=== PATIENT | male | born 1970 | race Caucasian/White ===

== ENCOUNTER 2020-09-16 08:32 | Outpatient (REF) | payer OTHER, SELFPAY ==
--- NOTE | 2020-09-16 08:40 | FL_ITS ---
PROCEDURE: BARIUM SWALLOW CLINICAL INFORMATION: Dysphagia. COMPARISON: None TECHNIQUE: Routine barium swallow was performed with thick barium, barium-coated turkey, barium tablet in upright and thin barium in prone lying position. FINDINGS: Following oral administration of thick barium, barium-coated turkey and barium tablet in upright view there is normal propagation of bolus from the oral cavity through the pharynx, esophagus into stomach without any evidence of obstruction, narrowing or stricture. A nonobstructive prominent cricoesophageal sphincter is noted. There is spontaneous passage of barium tablet from the oral cavity through the esophagus into stomach. On placing patient prone lying and oral administration of thin barium there is normal distention of esophagus without any intraluminal mass, obstruction or extraluminal indentation. There is no hiatal hernia or gastroesophageal reflux seen. IMPRESSION: Unremarkable barium swallow. Fluoroscopy time: 2.9 minutes. Total dose area product: 47.814 Gy-cm2.
== END 2020-09-16 08:33 | disposition home or self-care (01) ==
LOC: HO.XRAY 08:32
PROVIDERS: PCP Internal Medicine; Visit Provider Internal Medicine
DX: R13.10 Dysphagia, unspecified (principal)
CPT/HCPCS: 74220

== ENCOUNTER 2022-07-24 09:40 | Outpatient (REF) | payer BC, SELFPAY ==
[2022-07-24 09:59] LABS: MANUAL DIFF FLAG NO
[2022-07-24 10:50] LABS: Basophils Percent Auto 0.3 % (0-2); Eosinophils Absolute Auto 0.2 X10*3/uL (0.0-0.4); Eosinophils Percent Auto 1.9 % (0-4); Hematocrit 40.7 % (42.0-52.0); Hemoglobin 13.8 g/dl (14.0-18.0); Imm Gran Abs Auto 0.03 X10*3/uL (0.00-0.03); Imm Gran Pct Auto 0.3 % (0.0-0.4); Lymphocytes Absolute Auto 2.3 X10*3/uL (1.2-4.9); Lymphocytes Percent Auto 25.2 % (20-40); Mean Corpuscular HGB Conc 33.9 g/dl (31.0-36.0); Mean Corpuscular Volume 82.6 fL (80.0-98.0); Mean Platelet Volume 10.1 fL (9.4-12.4); Monocytes Absolute Auto 0.5 X10*3/uL (0.1-1.2); Monocytes Percent Auto 5.4 % (2-11); Neutrophils Absolute Auto 6.2 x10*3/uL (2.0-8.3); Neutrophils Percent Auto 66.9 % (45-73); Platelet Count 203 X10*3/uL (160-400); Red Blood Count 4.93 X10*6/uL (4.60-5.80); Red Cell Distribution Width 13.2 % (11.0-16.0); White Blood Count 9.2 X10*3/uL (4.8-10.8)
[2022-07-24 11:07] LABS: Appearance Urine Clear; Color Urine Yellow; Glucose Urine UA Negative (Negative); Leukocyte Esterase Urine Negative (Negative); Nitrite Urine Negative (Negative); Specific Gravity - Urine 1.015 (1.005-1.025); Urine Blood Negative (Negative); Urine Ketones Negative (Negative); Urine Protein Negative (Neg-Trace)
[2022-07-24 11:34] LABS: Alanine Aminotransferase 26 U/L (0-40); Albumin Level 4.4 g/dL (3.5-5.0); Alkaline Phosphatase 67 U/L (39-117); Anion Gap 14 (12-20); Aspartate Amino Transferase 25 U/L (5-37); Bilirubin Total 0.9 mg/dL (0.0-1.0); Blood Urea Nitrogen 16 mg/dL (9-16); Calcium 9.6 mg/dL (8.4-10.2); Carbon Dioxide 29 mmol/L (22-29); Chloride 102 mmol/L (96-108); Cholesterol 198 mg/dL; Estimated Glomerular Filt Rate > 60; Glucose Fasting 108 mg/dL (60-99); HDL Cholesterol 44 mg/dL; LDL Cholesterol Calculated 124 mg/dl; Potassium 4.6 mmol/L (3.3-5.1); Sodium 140 mmol/L (135-145); Total Protein 6.8 g/dL (6.5-8.0); Triglycerides 154 mg/dL
[2022-07-24 11:45] LABS: TSH reflex Free T4 0.86 uIU/mL (0.32-4.0)
== END 2022-07-24 09:41 | disposition home or self-care (01) ==
LOC: HO.LAB 09:40
PROVIDERS: PCP Internal Medicine; Visit Provider Internal Medicine
DX: E78.00 Pure hypercholesterolemia, unspecified (principal); E55.9 Vitamin D deficiency, unspecified; I10 Essential (primary) hypertension
CPT/HCPCS: 36415; 80053; 80061; 81003; 82306; 84443; 85025

== ENCOUNTER 2023-01-20 11:15 | Outpatient (REF) | payer BC, SELFPAY ==
--- NOTE | ~2023-01-20 | US_ITS ---
EXAMINATION: US RETROPERITONEAL LIMITED (RENAL ONLY) CLINICAL INFORMATION: Calculus of kidney. COMPARISON: Ultrasound retroperitoneal limited (renal only) 08/28/2018. CT of the abdomen and pelvis without contrast 08/11/2018. Ultrasound retroperitoneal limited (renal only) 05/29/2018. X-ray of the abdomen KUB 04/26/2018 and 03/29/2018. TECHNIQUE: Real-time imaging of the kidneys. FINDINGS: RIGHT KIDNEY: 13.5 x 6.3 x 7.7 cm (SAG x AP x TRV). The kidney is normal in size, contour, and echogenicity. Renal cortical thickness is normal. Multiple nonobstructing renal calculi are seen scattered throughout the kidney. The largest 3 were measured and range in size from 3.7 mm to 4.5 mm. No focal parenchymal lesions or hydronephrosis. LEFT KIDNEY: 13.2 x 6.3 x 7.7 cm (SAG x AP x TRV). The kidney is normal in size, contour, and echogenicity. Renal cortical thickness is normal. Multiple nonobstructing renal calculi are seen scattered throughout the kidney. Five of the larger stones are measured ranging in size from 4.3 mm up to 6.8 mm. No focal parenchymal lesions or hydronephrosis. Incidental note is made of an echogenic liver, consistent with hepatic steatosis which has been seen on prior imaging studies. US/US renal BI IMPRESSION: Bilateral nonobstructing renal calculi. Overall stone burden appears to have increased since prior imaging studies. Incidentally noted hepatic steatosis.
== END 2023-01-20 11:16 | disposition home or self-care (01) ==
LOC: HO.HMGCX 11:15
PROVIDERS: PCP Internal Medicine; Visit Provider Internal Medicine
DX: N20.0 Calculus of kidney (principal)
CPT/HCPCS: 76775

== ENCOUNTER → 2023-01-24 10:56 | Outpatient (BNVA) | payer BC, SELFPAY | PROVIDERS: PCP Internal Medicine; Visit Provider Urology | DX: Z13.89 Encounter for screening for other disorder (principal) ==

== ENCOUNTER 2023-01-31 08:22 | Outpatient (REF) | payer BC, SELFPAY ==
[2023-01-31 11:35] LABS: MANUAL DIFF FLAG NO
[2023-01-31 11:50] LABS: Appearance Urine Clear; Color Urine Yellow; Glucose Urine UA Negative (Negative); Leukocyte Esterase Urine Negative (Negative); Nitrite Urine Negative (Negative); PH 7.5 (5.0-9.0); Specific Gravity - Urine 1.015 (1.005-1.025); Urine Blood Negative (Negative); Urine Ketones Negative (Negative); Urine Protein Negative (Neg-Trace)
[2023-01-31 12:00] LABS: Basophils Percent Auto 0.4 % (0-2); Eosinophils Absolute Auto 0.2 X10*3/uL (0.0-0.4); Hematocrit 42.4 % (42.0-52.0); Hemoglobin 14.2 g/dl (14.0-18.0); Imm Gran Abs Auto 0.04 X10*3/uL (0.00-0.03); Imm Gran Pct Auto 0.4 % (0.0-0.4); Lymphocytes Absolute Auto 2.4 X10*3/uL (1.2-4.9); Lymphocytes Percent Auto 26.1 % (20-40); Mean Corpuscular HGB Conc 33.5 g/dl (31.0-36.0); Mean Corpuscular Hemoglobin 27.8 pg (27.0-33.0); Mean Platelet Volume 10.5 fL (9.4-12.4); Monocytes Absolute Auto 0.4 X10*3/uL (0.1-1.2); Monocytes Percent Auto 4.9 % (2-11); Neutrophils Percent Auto 66.2 % (45-73); Platelet Count 198 X10*3/uL (160-400); Red Blood Count 5.11 X10*6/uL (4.60-5.80); Red Cell Distribution Width 13.2 % (11.0-16.0)
[2023-01-31 12:07] LABS: Estimated Average Glucose 128 mg/dL; Hemoglobin A1c % 6.1 %
[2023-01-31 12:18] LABS: Alanine Aminotransferase 26 U/L (0-40); Albumin Level 4.4 g/dL (3.5-5.0); Alkaline Phosphatase 68 U/L (39-117); Anion Gap 13 (12-20); Aspartate Amino Transferase 25 U/L (5-37); Bilirubin Total 1.2 mg/dL (0.0-1.0); Blood Urea Nitrogen 15 mg/dL (9-16); Calcium 9.3 mg/dL (8.4-10.2); Carbon Dioxide 29 mmol/L (22-29); Chloride 103 mmol/L (96-108); Cholesterol 198 mg/dL; Estimated Glomerular Filt Rate > 60; Glucose Fasting 117 mg/dL (60-99); HDL Cholesterol 40 mg/dL; LDL Cholesterol Calculated 118 mg/dl; Sodium 141 mmol/L (135-145); Total Protein 6.7 g/dL (6.5-8.0); Triglycerides 204 mg/dL
[2023-01-31 12:35] LABS: TSH reflex Free T4 1.32 uIU/mL (0.32-4.0); Vitamin D 25-OH Total 37.2 ng/mL (>30)
[2023-01-31 13:49] LABS: Prostate Specific Antigen 0.56 ng/mL (<0.05-4.0)
== END 2023-01-31 08:23 | disposition home or self-care (01) ==
LOC: HO.HMGCLDS 08:22
PROVIDERS: PCP Internal Medicine; Visit Provider Internal Medicine
DX: Z12.5 Encounter for screening for malignant neoplasm of prostate (principal); E11.9 Type 2 diabetes mellitus without complications; R30.0 Dysuria; E55.9 Vitamin D deficiency, unspecified; I10 Essential (primary) hypertension; N40.0 Benign prostatic hyperplasia without lower urinary tract symptoms; E78.00 Pure hypercholesterolemia, unspecified
CPT/HCPCS: 36415; 80053; 80061; 81003; 82306; 83036; 84153; 84443; 85025

== ENCOUNTER 2023-02-04 13:12 | Outpatient (REF) | payer BC, SELFPAY ==
--- NOTE | ~2023-02-04 | XR_ITS ---
EXAMINATION: XR ABDOMEN KUB CLINICAL INDICATION: Renal calculus COMPARISON: KUB 04/26/2018, renal ultrasound 01/20/2023 TECHNIQUE: AP view of the abdomen. FINDINGS: Nonobstructive bowel gas pattern with small stool burden. Multiple stones project over the left kidney, the largest of which appears to be in the upper pole measuring up to 0.6 cm. Renal stones of the right kidney are not well seen likely secondary to overlying stool and bowel gas. Small calcification within the right pelvis, likely representing a phlebolith. No acute osseous abnormalities. XR/XR KUB IMPRESSION: 1. Multiple left-sided renal stones as above. Right renal stones are not well seen, likely secondary to bowel gas. 2. Nonobstructive bowel gas pattern.
== END 2023-02-04 13:13 | disposition home or self-care (01) ==
LOC: HO.XRAY 13:12
PROVIDERS: PCP Internal Medicine; Visit Provider Urology
DX: N20.0 Calculus of kidney (principal)
CPT/HCPCS: 74018

== ENCOUNTER → 2023-02-21 09:32 | Outpatient (BNVA) | payer BC, SELFPAY | PROVIDERS: PCP Internal Medicine; Visit Provider Urology | DX: N20.0 Calculus of kidney (principal) ==

== ENCOUNTER 2023-09-09 09:31 | Outpatient (AMB) | payer BC, SELFPAY ==
--- NOTE | 2023-09-09 09:52 | MHC.OFFVIS ---
Intake Intake Visit Reasons: 6m/litholink Intake Note: Patient presents today for a follow-up on Litholink Results, completed on 08/29/2023: Meds- Tamsulosin & Vitamin B6 Allergies to Antibiotic- No Known Allergies Blood Thinner- None Registrar Nurses' Registry Required: No Accompanied by: Self / Same As Patient Allergies No Known Allergies [No Known Allergies*] Allergy (Verified 09/09/23 09:53) Medication List - Last Reconciled 09/09/23 by Rasheed Del Valle MD allopurinol 100 mg PO DAILY amlodipine 10 mg PO DAILY 90 days fluoxetine 80 mg (2 x 40 mg) PO DAILY 90 days hydrochlorothiazide 12.5 mg PO QAM lisinopril 40 mg PO DAILY pyridoxine (vitamin B6) 50 mg PO DAILY tamsulosin 0.4 mg PO BID HPI HPI Comments History of Present Illness Details Miki is a 52-year-old male who presents to the clinic for discussion 24-hour urine collection test results. Miki is followed for kidney stones. He has passed numerous stones in the past. He has been prescribed allopurinol 100 mg daily, history of uric acid stones. Previous 24 hour urine collection has been significant for hypercalciuria and hyperoxaluria. I have instructed on vitamin B 100 mg daily. He is on tamsulosin bid for lower urinary tract symptoms from BPH. He states that he has seen Nephrology and had the hydrochlorothiazide medication increased. I have reviewed the recent 24 hour urine collection collected on 08/30/2023. There is notable improvement with urine calcium 200 and, urine oxalate 42, urine sodium 146. Urine citrate has lowered which has been high in the past patient states he has not been eating as much citrus fruit such oranges as usual. I have also discussed lemon in the water. He has been drinking adequate fluids, urine volume was 3.11 L. Total time in discussion with patient and documentation of this record, 30 min LV--02/21/2023-- Miki is a 52-year-old male who presents to the clinic for discussion of KUB, PSA, and 24-hour urine collection test results The patient is currently taking hydrochlorothiazide 12.5 mg and allopurinol 100 mg The patient had history of ESWL procedure 5 years ago without any noted side effects. AUA symptom score: 4. Discussed 24 hour urine results-- collected on 02/08/2023: Total volume 3.69 L, Calcium 338 mg; Oxalate 57 mg, Sodium 236, Citrate 419 mg, Uric acid 0.775. PSA results reviewed?01/31/2023?0.56 ng/mL. KUB results reviewed?02/04/23-- Multiple left and right renal calculi noted. Renal stones of the right kidney are not well seen likely secondary to overlying stool and bowel gas. Renal US-- Suggestive of bilateral nonobstructing renal calculi. Evaluation today: Blood: negative, leukocytes: negative. Imaging: Renal U/S--01/20/23: IMPRESSION: Bilateral nonobstructing renal calculi. KUB 02/04/2023-bilateral kidney stones largest stone in the left kidney 6 mm Plan: The patient has passed many stones in the past and is currently asymptomatic his 24 hour urine numbers have improved. Will monitor kidneys Follow-up in 9 months with renal ultrasound prior [facility] Medical History Impaired fasting glucose Primary osteoarthritis of both knees Carpal tunnel syndrome, right Uric acid renal calculus Dysphagia Benign prostatic hyperplasia Morbid obesity with BMI of 40.0-44.9, adult Anxiety Obstructive sleep apnea Benign essential hypertension Surgical History History of lithotripsy (~03/29/18) History of lithotripsy History of surgery History of colonoscopy History of vasectomy History of tonsillectomy Family History Father No problems noted. Mother No problems noted. Brother Diabetes mellitus Social History Housing: House Alcohol intake: current Alcohol intake frequency: holidays/special occasions only Patient Tobacco Use Status: Former Tobacco user e-Cigarette/Vaping Use: Never Used Second Hand Smoke Exposure: Yes service: No Current occupational status: employed Cognitive needs: No Hearing needs: No Vision needs: Yes Review of Systems Const Reports no additional complaints Eyes Reports no additional complaints ENT Denies neck pain Card Denies leg edema Resp Denies cough GI Denies constipation Musc Reports no additional complaints and Denies neck pain Skin/Breast Denies rash and Denies unusual bruising Neuro Reports no additional complaints Psych Reports no additional complaints Endo Reports no additional complaints Alexander/Lymph Reports no additional complaints Aller/Immun Reports no additional complaints Results AMB Urinalysis, Automated UA Leukoctes 15 Huyen/uL Last Edit by Lex Coles [facility] on 09/09/23 10:12 UA Nitrite Negative Last Edit by Lex Coles, [facility] on 09/09/23 10:12 UA Urobilinogen 0.2 mg/dL Last Edit by Lex Coles [facility] on 09/09/23 10:12 UA Protein 0 mg/dL Last Edit by Lex Coles [facility] on 09/09/23 10:12 UA pH 6.5 Last Edit by Lex Coles [facility] on 09/09/23 10:12 UA Blood 0 Nba/uL Last Edit by Lex Coles [facility] on 09/09/23 10:12 UA Specific [place] 1.015 Last Edit by Lxe Coles [facility] on 09/09/23 10:12 UA Ketone Negative Last Edit by Lex Coles [facility] on 09/09/23 10:12 UA Bilirubin 0 mg/dL Last Edit by Lex Coles [facility] on 09/09/23 10:12 UA Glucose 0 mg/dL Last Edit by Lex Coles [facility] on 09/09/23 10:12 Results Reviewed Results Reviewed: Laboratory Last Values Urine pH (Auto) 6.5 09/09/23 09:53 Specific [place] (Auto) 1.015 09/09/23 09:53 Urine Protein (Auto) 0 mg/dL 09/09/23 09:53 Glucose (UA)(Auto) 0 mg/dL 09/09/23 09:53 Urine Ketones (Auto) Negative 09/09/23 09:53 Urine Blood (Auto) 0 Nba/uL 09/09/23 09:53 Urine Nitrite (Auto) Negative 09/09/23 09:53 Urine Bilirubin (Auto) 0 mg/dL 09/09/23 09:53 Urine Urobilinogen (Auto) 0.2 mg/dL 09/09/23 09:53 Leukocyte Esterase (Auto) 15 Huyen/uL 09/09/23 09:53 Assessment & Plan Assessment & Plan (1) Hypercalciuria: Code(s): R82.994 - Hypercalciuria (2) Hyperoxaluria: Code(s): R82.992 - Hyperoxaluria (3) Bilateral kidney stones: Code(s): N20.0 - Calculus of kidney Orders: Orders US renal BI Today N20.0 - Calculus of kidney, R82.992 - Hyperoxaluria, R82.994 - Hypercalciuria AMB Urinalysis Automated Today Z13.9 - Encounter for screening, unspecified Coding Level of Care Code Est Pt Level 4 (33840) Diagnoses Hypercalciuria R82.994 Hyperoxaluria R82.992 Bilateral kidney stones N20.0 Time Spent (min) 30
== END 2023-09-09 11:00 | disposition home or self-care (01) ==
PROVIDERS: PCP Internal Medicine; Visit Provider Urology
DX: R82.994 Hypercalciuria (principal); R82.992 Hyperoxaluria; N20.0 Calculus of kidney; Z13.9 Encounter for screening, unspecified
CPT/HCPCS: 99214

== ENCOUNTER → 2023-09-09 09:31 | Outpatient (BNVA) | payer BC, SELFPAY | PROVIDERS: Visit Provider Urology | DX: N20.0 Calculus of kidney (principal); R82.994 Hypercalciuria; R82.992 Hyperoxaluria | CPT/HCPCS: 81003 ==

== ENCOUNTER 2024-02-24 07:10 | Outpatient (REF) | payer BC, SELFPAY ==
[2024-02-24 10:41] LABS: MANUAL DIFF FLAG NO
[2024-02-24 10:49] LABS: Basophils Percent Auto 0.4 % (0-2); Eosinophils Absolute Auto 0.2 X10*3/uL (0.0-0.4); Hematocrit 41.3 % (42.0-52.0); Hemoglobin 14.1 g/dl (14.0-18.0); Imm Gran Abs Auto 0.03 X10*3/uL (0.00-0.03); Imm Gran Pct Auto 0.3 % (0.0-0.4); Lymphocytes Absolute Auto 2.2 X10*3/uL (1.2-4.9); Lymphocytes Percent Auto 23.7 % (20-40); Mean Corpuscular HGB Conc 34.1 g/dl (31.0-36.0); Mean Corpuscular Hemoglobin 28.5 pg (27.0-33.0); Mean Corpuscular Volume 83.6 fL (80.0-98.0); Mean Platelet Volume 10.6 fL (9.4-12.4); Monocytes Absolute Auto 0.5 X10*3/uL (0.1-1.2); Monocytes Percent Auto 5.4 % (2-11); Neutrophils Absolute Auto 6.2 x10*3/uL (2.0-8.3); Neutrophils Percent Auto 68.2 % (45-73); Platelet Count 201 X10*3/uL (160-400); Red Blood Count 4.94 X10*6/uL (4.60-5.80); Red Cell Distribution Width 13.2 % (11.0-16.0); White Blood Count 9.1 X10*3/uL (4.8-10.8)
[2024-02-24 11:09] LABS: Appearance Urine Clear; Color Urine Yellow; Glucose Urine UA Negative (Negative); Leukocyte Esterase Urine Negative (Negative); Nitrite Urine Negative (Negative); PH 6.5 (5.0-9.0); Specific Gravity - Urine 1.015 (1.005-1.025); Urine Blood Negative (Negative); Urine Ketones Negative (Negative); Urine Protein Negative (Neg-Trace)
[2024-02-24 11:10] LABS: Alanine Aminotransferase 26 U/L (0-40); Albumin Level 4.3 g/dL (3.5-5.0); Alkaline Phosphatase 66 U/L (39-117); Anion Gap 13 (12-20); Aspartate Amino Transferase 25 U/L (5-37); Bilirubin Total 0.9 mg/dL (0.0-1.0); Blood Urea Nitrogen 16 mg/dL (9-16); Calcium 9.6 mg/dL (8.4-10.2); Carbon Dioxide 25 mmol/L (22-29); Chloride 105 mmol/L (96-108); Cholesterol 191 mg/dL (<200); Estimated Glomerular Filt Rate > 60; Glucose Fasting 128 mg/dL (60-99); HDL Cholesterol 47 mg/dL (>40); LDL Cholesterol Calculated 115 mg/dL (<100); Potassium 3.7 mmol/L (3.3-5.1); Sodium 139 mmol/L (135-145); Total Protein 7.1 g/dL (6.5-8.0); Triglycerides 145 mg/dL (<150)
[2024-02-24 11:17] LABS: Estimated Average Glucose 123 mg/dL; Hemoglobin A1C 148.6389 umol/L; Hemoglobin A1c % 5.9 % (<6.0)
[2024-02-24 11:28] LABS: TSH reflex Free T4 0.85 uIU/mL (0.32-4.0); Vitamin D 25-OH Total 59.5 ng/mL (>30)
== END 2024-02-24 07:11 | disposition home or self-care (01) ==
LOC: HO.HMGCLDS 07:10
PROVIDERS: PCP Internal Medicine; Visit Provider Internal Medicine
DX: Z00.00 Encounter for general adult medical examination without abnormal findings (principal); Z12.5 Encounter for screening for malignant neoplasm of prostate; E78.00 Pure hypercholesterolemia, unspecified; E11.9 Type 2 diabetes mellitus without complications; E55.9 Vitamin D deficiency, unspecified; D64.9 Anemia, unspecified; R30.0 Dysuria
CPT/HCPCS: 36415; 80053; 80061; 81003; 82306; 83036; 84153; 84443; 85025

== ENCOUNTER 2024-03-23 12:54 | Outpatient (AMB) | payer BC, SELFPAY ==
[2024-03-23 12:58] VITALS: BP 116/74; PULSE 80; O2SAT 98; BMI 43.1
--- NOTE | 2024-03-23 12:58 | MHC.PC.OV ---
Vital Signs 03/23/24 12:58 Height 5 ft 10 in Weight 300 lb 8 oz BMI 43.1 BP 116/74 Blood Pressure Location Lt brachial Position Sitting Pulse 80 Pulse Source Pulse Oximeter Pulse Oximetry (%) 98 Oxygen Delivery Method Room Air Intake Visit Reasons: Annual Exam Intake Note: Patient is here today for a physical. 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: No Accompanied by: Self / Same As Patient Allergies No Known Allergies [No Known Allergies*] Allergy (Verified 03/23/24 13:08) Medication List - Last Reconciled 03/23/24 by Rosendo Easton MD allopurinol 100 mg PO DAILY amlodipine 10 mg PO DAILY 90 days fluoxetine 80 mg (2 x 40 mg) PO DAILY 90 days hydrochlorothiazide 25 mg PO QAM hydrochlorothiazide 25 mg PO DAILY lisinopril 40 mg PO DAILY pyridoxine (vitamin B6) 50 mg PO DAILY tamsulosin 0.8 mg PO Q24H Tobacco use date assessed: 03/23/24 HPI Annual Exam HPI Details Patient comes in today for his annual physical examination - was last seen just over a year ago in January 2023 States that he feels okay He denies any headaches or dizziness Denies any chest pains, no SOB No nausea/vomiting, no abdominal pain No change in bowel habits noted He denies any acute urinary symptoms although he is now taking 2 tablets (0.8 mg) of Tamsulosin at night daily Adds that he needs Rx for a new CPAP device as he is getting a message/notification on his current machine (which is at least 5 years old) that it is nearing the end of life of its freon supply He had his follow up labs done last month - to discuss his results He had his screening colonoscopy last done in 2018 and is not due for repeat colonoscopy for 10 years - will be due for repeat again in 2028 [facility] Medical History Impaired fasting glucose Primary osteoarthritis of both knees Carpal tunnel syndrome, right Uric acid renal calculus Dysphagia Benign prostatic hyperplasia Morbid obesity with BMI of 40.0-44.9, adult Anxiety Obstructive sleep apnea Benign essential hypertension Surgical History History of lithotripsy (~03/29/18) History of lithotripsy History of surgery History of colonoscopy History of vasectomy History of tonsillectomy Family History Father No problems noted. Mother No problems noted. Brother Diabetes mellitus Social History Housing: House Alcohol intake: current Alcohol intake frequency: holidays/special occasions only Patient Tobacco Use Status: Former Tobacco user e-Cigarette/Vaping Use: Never Used Second Hand Smoke Exposure: Yes service: No Current occupational status: employed Cognitive needs: No Hearing needs: No Vision needs: Yes Questionnaire PHQ-9 Over the last 2 weeks, how often have you been bothered by any of the following problems? 1. Little interest or pleasure in doing things: not at all 2. Feeling down, depressed, or hopeless: not at all 3. Trouble falling or staying asleep, or sleeping too much: not at all 4. Feeling tired or having little energy: not at all 5. Poor appetite or overeating: not at all 6. Feeling bad about yourself - or that you are a failure or have let yourself or your family down: not at all 7. Trouble concentrating on things, such as reading the newspaper or watching television: not at all 8. Moving or speaking so slowly that other people could have noticed. Or the opposite - being so fidgety or restless that you have been moving around a lot more than usual: not at all 9. Thoughts that you would be better off or of hurting yourself in some way: not at all Total score: 0 Depression Screening Interpretation: Negative Depression Screening Done: Yes 88093 - PHQ-9 Billing: Yes Source: Developed by Drs. Eulalio Levy, Irene Aponte, Janak Orourke and colleagues, with an educational namrata from [employer]. Thrive Questionnaire Date Thrive assessed: 03/23/24 I am a: Patient What is your living situation today?: I have a steady place to live Within the past 12 months, did the food you bought not last and you didn't have the money to get more?: Never true Within the past 12 months, did you worry whether your food would run out before you got money to buy more?: Never true Do you have trouble paying for medicines?: No Do you have trouble getting transportation to medical appointments?: No Do you have trouble paying your heating and electricity bill?: No Do you have trouble taking care of your child, family member or friend?: No Do you have trouble with day-to-day activities such as bathing, preparing meals, shopping, managing finances, etc.?: No Are you currently unemployed and looking for a job?: No Are you interested in more education?: No Please select the resources that you would like help with: None Currently or been in a relationship where the following occur: no concerns reported THRIVE Score: 0 AUDIT C Alcohol Use Questionnaire (AUDIT-C) 1. How often do you have a drink containing alcohol?: Never 3. How often do you have six or more drinks on one occasion?: Never Total Score: 0 Score Reviewed/Action Taken: Yes ELMA-7 AMB Questionnaire ELMA-7 Date ELMA - 7 assessed: 02/04/23 Source: Developed by Drs. Eulalio Levy, Irene Aponte, Janak Orourke and colleagues, with an educational namrata from [employer]. Review of Systems Const Denies chills, Denies fatigue, Denies fever(s), Denies headache(s), Denies malaise and Denies weakness Eyes Denies blurry vision, Denies change in vision, Denies irritation and Denies itchy eyes ENT Denies dysphagia, Denies dizziness, Denies otalgia, Denies headache(s), Denies nasal congestion, Denies neck pain, Denies odynophagia and Denies sore throat Card Denies chest pain, Denies rapid heart rate, Denies irregular heart rhythm, Denies palpitations and Denies dyspnea Resp Denies chest congestion, Denies cough, Denies dyspnea and Denies wheezing GI Denies abdominal pain, Denies bloating, Denies constipation, Denies dysphagia, Denies heartburn, Denies diarrhea, Denies nausea, Denies odynophagia and Denies vomiting Denies hematuria, Denies difficulty urinating, Denies dysuria, Denies urinary frequency and Denies urinary urgency Musc Denies back pain, Denies arthralgias, Denies joint swelling, Denies muscle weakness and Denies neck pain Skin/Breast Denies change in pigmentation, Denies lesions, Denies rash and Denies unusual bruising Neuro Denies dizziness, Denies headache(s), Denies paresthesias and Denies weakness Endo Denies fatigue and Denies palpitations Aller/Immun Denies itchy eyes and Denies wheezing Physical exam (Primary Care) Vital Signs: Oxygen Delivery Method Room Air 03/23/24 12:58 BMI result Body Mass Index 43.1 Tobacco/Smoking Status: Tobacco use Status Tobacco use date assessed 03/23/24 03/23/24 13:04 Patient Tobacco Use Status Former Tobacco user 03/23/24 12:59 e-Cigarette/Vaping Use Never Used 03/23/24 12:59 Depression Screening Interpretation: Negative Thrive Assessment: Date of Thrive Assessment Date Thrive assessed 02/04/23 03/23/24 12:59 Currently or been in a relationship where the following occur: no concerns reported Const General: no acute distress, alert and awake Orientation/consciousness: patient oriented x3 HENMT Head: Yes normocephalic and Yes atraumatic Ears: external ears normal, TM's normal bilaterally and EAC's normal General nose exam: No nasal discharge present Face and sinus: Yes normal facial exam and Yes sinuses nontender Teeth and gingiva: dentition normal Throat: Yes posterior oropharynx normal and Yes tonsils normal (no TP congestion) Eyes Eyelids: Yes eyelids normal Conjunctivae: conjunctivae normal Pupils: Equal, round and reactive pupils present EOM: EOMs intact bilaterally Neck Neck: Yes no lymphadenopathy and Yes supple Thyroid: Thyroid normal Resp Auscultation: clear to auscultation bilaterally, no rales and no wheezes Cardio Rate: regular rate Rhythm: regular rhythm Heart sounds: no murmurs GI Palpation (GI): Soft to palpation, nontender and No hepatosplenomegaly present Auscultation: normal bowel sounds General: Yes no CVA tenderness Back/Spine/Pelvis Back: no CVA tenderness Thoracic/Lumbar Spine: thoracic and lumbar spine normal to inspection Skin Lesions: no lesions Rashes: no rashes Neuro General: patient oriented x3, moves all extremities, no focal motor deficits and CN's II-XI intact bilaterally Cranial nerves: Yes Equal, round and reactive pupils present Cognition (Neuro): normal cognition Gait exam (Neuro): Normal gait present Extrem General: Yes no clubbing, cyanosis or edema Results Reviewed Results Reviewed: Laboratory Tests 02/24/24 02/24/24 07:18 07:38 WBC 9.1 Hgb 14.1 Hct 41.3 L Plt Count 201 Sodium 139 Potassium 3.7 Creatinine 0.89 Estimated GFR > 60 Fasting Glucose 128 H Hemoglobin A1c % 5.9 Calcium 9.6 AST 25 ALT 26 Triglycerides 145 Cholesterol 191 LDL Cholesterol, Calc 115 H HDL Cholesterol 47 PSA Screen 0.60 25-OH Vitamin D Total 59.5 TSH 0.85 Ur Specific [place] 1.015 Urine Protein Negative Urine Glucose (UA) Negative Urine Blood Negative Urine Nitrite Negative Ur Leukocyte Esterase Negative Assessment and Plan Assessment & Plan (1) Annual physical exam: Code(s): Z00.00 - Encounter for general adult medical examination without abnormal findings Plan: Results of his labs done last month reviewed and discussed with patient Patient is up-to-date with his cancer screenings and he is not due for his repeat colonoscopy until 2028 (2) Benign essential hypertension: Code(s): I10 - Essential (primary) hypertension Plan: Reinforced low sodium diet - goal is systolic BP of 120 mm or less Continue Lisinopril 40 mg QD, HCTZ 25 mg QD and Amlodipine 10 mg QD Patient is reminded to continue monitoring his blood pressure regularly (3) Mixed hyperlipidemia: Code(s): E78.2 - Mixed hyperlipidemia Plan: Reinforced low cholesterol diet Advised that his cholesterol levels are acceptable and within normal range on his labs done last month (4) Impaired fasting glucose: Code(s): R73.01 - Impaired fasting glucose Plan: His HgbA1c was at 5.9% on his labs done last month; was at 6.1% last year Reinforced low calorie diet/exercise as tolerated (5) Obstructive sleep apnea: Code(s): G47.33 - Obstructive sleep apnea (adult) (pediatric) Plan: Continue using his CPAP device when sleeping at night daily - states that his CPAP device has helped improve his symptoms Per request, will provide him with Rx for replacement device (6) Carpal tunnel syndrome, right: Code(s): G56.01 - Carpal tunnel syndrome, right upper limb Plan: Confirmed on EMG/NCV done a few years ago States that he has been advised by Dr. Fuentes to wear his wrist splint regularly to help manage his symptoms; to follow up with Dr. Fuentes as scheduled/as needed (7) Primary osteoarthritis of both knees: Code(s): M17.0 - Bilateral primary osteoarthritis of knee Plan: Follow up with [facility] as scheduled Has reportedly been advised by orthopedics to try losing weight first before any intervention can be considered (8) Uric acid renal calculus: Code(s): N20.0 - Calculus of kidney Plan: Reports no significant or acute symptoms lately although he is still passing out some stones regularly Continue Allopurinol 100 mg QD and Pyridoxine 50 mg QD Repeat renal US done last year revealed (+) bilateral nonobstructing renal calculi. Overall stone burden appears to have increased since prior imaging studies. Incidentally noted hepatic steatosis Follow up with urology as scheduled - used to see Dr. Phillips but is now seeing Dr. Sommers (9) Benign prostatic hyperplasia: Code(s): N40.0 - Benign prostatic hyperplasia without lower urinary tract symptoms Qualifiers: Lower urinary tract symptom detail: urinary obstruction Lower urinary tract symptom presence: symptoms present Qualified Code(s): N40.1 - Benign prostatic hyperplasia with lower urinary tract symptoms; N13.8 - Other obstructive and reflux uropathy Plan: Continue Tamsulosin 0.4 mg 2 tablets Q HS Follow up with urology as scheduled (10) Anxiety: Code(s): F41.9 - Anxiety disorder, unspecified Plan: Continue Fluoxetine 80 mg QD Follow up with psychiatry as scheduled (11) Morbid obesity with BMI of 40.0-44.9, adult: Code(s): E66.01 - Morbid (severe) obesity due to excess calories; Z68.41 - Body mass index [BMI] 40.0-44.9, adult Plan: Reinforced diet/exercise as tolerated/lose weight Plan Follow up in 6 months Medications: New [CPAP device with all related supplies] As directed 1 ea 0RF Rosendo Easton MD G47.33 - Obstructive sleep apnea (adult) (pediatric) Changed From tamsulosin 0.4 mg PO BID 180 caps 0RF To tamsulosin 0.8 mg PO Q24H Nallely Dallas MD Coding Level of Care Code Est Pt Prev Care 40-64y(78148) Diagnoses Annual physical exam Z00.00 Benign essential hypertension I10 Mixed hyperlipidemia E78.2 Impaired fasting glucose R73.01 Obstructive sleep apnea G47.33 Carpal tunnel syndrome, right G56.01 Primary osteoarthritis of both knees M17.0 Uric acid renal calculus N20.0 Benign prostatic hyperplasia with urinary obstruction N40.1; N13.8 Lower urinary tract symptom detail: urinary obstruction Lower urinary tract symptom presence: symptoms present Anxiety F41.9 Morbid obesity with BMI of 40.0-44.9, adult E66.01; Z68.41
== END 2024-03-23 13:44 | disposition home or self-care (01) ==
PROVIDERS: PCP Internal Medicine; Visit Provider Internal Medicine
DX: Z00.00 Encounter for general adult medical examination without abnormal findings (principal); E66.01 Morbid (severe) obesity due to excess calories; Z68.41 Body mass index [BMI] 40.0-44.9, adult; I10 Essential (primary) hypertension; E78.2 Mixed hyperlipidemia; R73.01 Impaired fasting glucose; G47.33 Obstructive sleep apnea (adult) (pediatric); G56.01 Carpal tunnel syndrome, right upper limb; M17.0 Bilateral primary osteoarthritis of knee; N20.0 Calculus of kidney; N40.1 Benign prostatic hyperplasia with lower urinary tract symptoms; N13.8 Other obstructive and reflux uropathy
CPT/HCPCS: 99396

== ENCOUNTER 2024-05-29 07:54 | Outpatient (REF) | payer BC, SELFPAY ==
--- NOTE | ~2024-05-29 | US_ITS ---
EXAMINATION: US RETROPERITONEAL LIMITED (RENAL ONLY) CLINICAL INFORMATION: Hypercalciuria. COMPARISON: X-ray KUB 02/04/2023 and 04/26/2018. Renal ultrasound 02/17/2023 and 08/28/2018. CT scan abdomen and pelvis 08/11/2018. TECHNIQUE: Real-time imaging of the kidneys. FINDINGS: RIGHT KIDNEY: 15.1 x 5.9 x 7.1 cm (SAG x AP x TRV). The kidney is normal in size, contour, and echogenicity. Renal cortical thickness is normal. No focal parenchymal lesions or hydronephrosis. There are multiple nonobstructing renal calculi, the 3 largest measure lower pole 0.4 x 0.4 x 0.5 cm, lower pole 0.7 x 0.4 x 0.4 cm and mid kidney 0.7 x 0.5 x 0.5 cm. LEFT KIDNEY: 14.3 x 6.5 x 5.8 cm (SAG x AP x TRV). The kidney is normal in size, contour, and echogenicity. Renal cortical thickness is normal. No focal parenchymal lesions or hydronephrosis. There are multiple nonobstructing renal calculi, the 3 largest measure: Upper pole 0.7 x 0.6 x 0.7 cm, mid kidney 0.5 x 0.6 x 0.4 cm and lower pole 0.8 x 0.6 x 0.6 cm. US/US renal BI IMPRESSION: Bilateral nonobstructing renal calculi.
== END 2024-05-29 07:55 | disposition home or self-care (01) ==
LOC: HO.US 07:54
PROVIDERS: PCP Internal Medicine; Visit Provider Urology
DX: R82.994 Hypercalciuria (principal); R82.992 Hyperoxaluria; N20.0 Calculus of kidney
CPT/HCPCS: 76775

== ENCOUNTER 2024-06-15 13:01 | Outpatient (AMB) | payer BC, SELFPAY ==
--- NOTE | 2024-06-15 13:02 | A.OFFVIS_ITS ---
Intake Visit Reasons: 9m/US Intake Note: Patient presents today for a 9m follow-up and US Meds- Tamsulosin & Vitamin B6 Allergies to Antibiotic- No Known Allergies Blood Thinner- None Analytical Chemist Required: No Accompanied by: Self / Same As Patient Allergies No Known Allergies [No Known Allergies*] Allergy (Verified 06/15/24 13:03) Medication List - Last Reconciled 06/15/24 by Rasheed Del Valle MD allopurinol 100 mg PO DAILY amlodipine 10 mg PO DAILY 90 days [CPAP device with all related supplies Use as directed - recommended setting of 7 cm H2O] fluoxetine 80 mg (2 x 40 mg) PO DAILY 90 days hydrochlorothiazide 25 mg PO DAILY lisinopril 40 mg PO DAILY pyridoxine (vitamin B6) 100 mg PO DAILY 90 days tamsulosin 0.8 mg (2 x 0.4 mg) PO Q24H HPI Comments Details: 06/15/24--Miki is a 54-year-old male here for follow-up for kidney stones and BPH. He states that he will occasionally get left-sided flank pain, denies blood in the urine. He is also followed by nephrology and is on hydrochlorothiazide, and allopurinol. He denies any issues with urination. I have reviewed the follow-up renal ultrasound dated 05/29/2024, bilateral renal stones ranging from 4 mm to 8 mm no hydronephrosis. I have discussed with him that his PSAs have been normal, last PSA 02/14/2024--PSA--0.60. I have discussed to continue on vitamin B6 100 mg daily and allopurinol 100 mg daily as well as following up with Nephrology who is managing the hydrochlorothiazide. Will continue to monitor kidney stones. Follow-up in 1 year renal ultrasound and KUB prior. Review of chart: 09/09/23--Miki is a 52-year-old male who presents to the clinic for discussion 24-hour urine collection test results. Miki is followed for kidney stones. He has passed numerous stones in the past. He has been prescribed allopurinol 100 mg daily, history of uric acid stones. Previous 24 hour urine collection has been significant for hypercalciuria and hyperoxaluria. I have instructed on vitamin B 100 mg daily. He is on tamsulosin bid for lower urinary tract symptoms from BPH. He states that he has seen Nephrology and had the hydrochlorothiazide medication increased. I have reviewed the recent 24 hour urine collection collected on 08/30/2023. There is notable improvement with urine calcium 200 and, urine oxalate 42, urine sodium 146. Urine citrate has lowered which has been high in the past patient states he has not been eating as much citrus fruit such oranges as usual. I have also discussed lemon in the water. He has been drinking adequate fluids, urine volume was 3.11 L. Total time in discussion with patient and documentation of this record, 30 min 02/21/2023-- Miki is a 52-year-old male who presents to the clinic for discussion of KUB, PSA, and 24-hour urine collection test results The patient is currently taking hydrochlorothiazide 12.5 mg and allopurinol 100 mg The patient had history of ESWL procedure 5 years ago without any noted side effects. AUA symptom score: 4. Discussed 24 hour urine results-- collected on 02/08/2023: Total volume 3.69 L, Calcium 338 mg; Oxalate 57 mg, Sodium 236, Citrate 419 mg, Uric acid 0.775. PSA results reviewed?01/31/2023?0.56 ng/mL. KUB results reviewed?02/04/23-- Multiple left and right renal calculi noted. Renal stones of the right kidney are not well seen likely secondary to overlying stool and bowel gas. Renal US-- Suggestive of bilateral nonobstructing renal calculi. Evaluation today: Blood: negative, leukocytes: negative. Imaging: Renal U/S--01/20/23: IMPRESSION: Bilateral nonobstructing renal calculi. KUB 02/04/2023-bilateral kidney stones largest stone in the left kidney 6 mm [facility] Medical History Impaired fasting glucose Primary osteoarthritis of both knees Carpal tunnel syndrome, right Uric acid renal calculus Dysphagia Benign prostatic hyperplasia Morbid obesity with BMI of 40.0-44.9, adult Anxiety Obstructive sleep apnea Benign essential hypertension Surgical History History of lithotripsy (~03/29/18) History of lithotripsy History of surgery History of colonoscopy History of vasectomy History of tonsillectomy Family History Father No problems noted. Mother No problems noted. Brother Diabetes mellitus Social History Housing: House Alcohol intake: current Alcohol intake frequency: holidays/special occasions only Patient Tobacco Use Status: Former Tobacco user e-Cigarette/Vaping Use: Never Used Second Hand Smoke Exposure: Yes service: No Current occupational status: employed Cognitive needs: No Hearing needs: No Vision needs: Yes Review of Systems Const All systems reviewed & are unremarkable except as noted in HPI and below Reports no additional complaints Eyes Reports no additional complaints ENT Reports no additional complaints Card Reports no additional complaints Resp Reports no additional complaints GI Reports no additional complaints Reports as per HPI Musc Reports no additional complaints Skin/Breast Reports system reviewed and no additional complaints, except as documented Neuro Reports no additional complaints Psych Reports no additional complaints Endo Reports no additional complaints Alexander/Lymph Reports no additional complaints Aller/Immun Reports no additional complaints Results AMB Urinalysis, Automated UA Leukoctes 0 Huyen/uL Last Edit by ARIELA Wick on 06/15/24 13:10 UA Nitrite Negative Last Edit by ARIELA Wick on 06/15/24 13:10 UA Urobilinogen 0.2 mg/dL Last Edit by ARIELA Wick on 06/15/24 13:1 0 UA Protein 0 mg/dL Last Edit by ARIELA Wick on 06/15/24 13:10 UA pH 6.5 Last Edit by ARIELA Wick on 06/15/24 13:10 UA Blood 10 Nba/uL Last Edit by ARIELA Wick on 06/15/24 13:10 UA Specific [place] 1.010 Last Edit by ARIELA Wick on 06/15/24 13: 10 UA Ketone Negative Last Edit by ARIELA Wick on 06/15/24 13:10 UA Bilirubin 0 mg/dL Last Edit by ARIELA Wick on 06/15/24 13:10 UA Glucose 0 mg/dL Last Edit by ARIELA Wick on 06/15/24 13:10 Results Reviewed Results Reviewed: Laboratory Last Values Urine pH (Auto) 6.5 06/15/24 13:09 Specific [place] (Auto) 1.010 06/15/24 13:09 Urine Protein (Auto) 0 mg/dL 06/15/24 13:09 Glucose (UA)(Auto) 0 mg/dL 06/15/24 13:09 Urine Ketones (Auto) Negative 06/15/24 13:09 Urine Blood (Auto) 10 Nba/uL 06/15/24 13:09 Urine Nitrite (Auto) Negative 06/15/24 13:09 Urine Bilirubin (Auto) 0 mg/dL 06/15/24 13:09 Urine Urobilinogen (Auto) 0.2 mg/dL 06/15/24 13:09 Leukocyte Esterase (Auto) 0 Huyen/uL 06/15/24 13:09 05/29/24--radiology watch inspector final movement pending. Reviewed renal ultrasound films- bilateral kidney stones ranging from 4 mm to 8 mm. Date of Service: 02/04/23 XR ABDOMEN KUB CLINICAL INDICATION: Renal calculus COMPARISON: KUB 04/26/2018, renal ultrasound 01/20/2023 TECHNIQUE: AP view of the abdomen. FINDINGS: Nonobstructive bowel gas pattern with small stool burden. Multiple stones project over the left kidney, the largest of which appears to be in the upper pole measuring up to 0.6 cm. Renal stones of the right kidney are not well seen likely secondary to overlying stool and bowel gas. Small calcification within the right pelvis, likely representing a phlebolith. No acute osseous abnormalities. IMPRESSION: 1. Multiple left-sided renal stones as above. Right renal stones are not well seen, likely secondary to bowel gas. 2. Nonobstructive bowel gas pattern. __ Date of Service: 01/20/23 EXAMINATION: US RETROPERITONEAL LIMITED (RENAL ONLY) CLINICAL INFORMATION: Calculus of kidney. COMPARISON: Ultrasound retroperitoneal limited (renal only) 08/28/2018. CT of the abdomen and pelvis without contrast 08/11/2018. Ultrasound retroperitoneal limited (renal only) 05/29/2018. X-ray of the abdomen KUB 04/26/2018 and 03/29/2018. TECHNIQUE: Real-time imaging of the kidneys.? FINDINGS: RIGHT KIDNEY: 13.5 x 6.3 x 7.7 cm (SAG x AP x TRV). The kidney is normal in size, contour, and echogenicity. Renal cortical thickness is normal. Multiple nonobstructing renal calculi are seen scattered throughout the kidney. The largest 3 were measured and range in size from 3.7 mm to 4.5 mm. No focal parenchymal lesions or hydronephrosis. LEFT KIDNEY: 13.2 x 6.3 x 7.7 cm (SAG x AP x TRV). The kidney is normal in size, contour, and echogenicity. Renal cortical thickness is normal. Multiple nonobstructing renal calculi are seen scattered throughout the kidney. Five of the larger stones are measured ranging in size from 4.3 mm up to 6.8 mm. No focal parenchymal lesions or hydronephrosis. Incidental note is made of an echogenic liver, consistent with hepatic steatosis which has been seen on prior imaging studies. IMPRESSION: Bilateral nonobstructing renal calculi. Overall stone burden appears to have increased since prior imaging studies. Incidentally noted hepatic steatosis. ? Assessment & Plan Assessment & Plan (1) Hypercalciuria: Code(s): R82.994 - Hypercalciuria Category: Medical (2) Hyperoxaluria: Code(s): R82.992 - Hyperoxaluria Category: Medical (3) Bilateral kidney stones: Code(s): N20.0 - Calculus of kidney Category: Medical Plan BPH. Continue tamsulosin 0.8 mg daily. PSA screening with PCP Bilateral kidney stones. We will continue to monitor. Follow-up in 1 year renal ultrasound and KUB prior Orders: Orders AMB Urinalysis Automated Today Z13.9 - Encounter for screening, unspecified Medications: New pyridoxine (vitamin B6) 100 mg PO DAILY 90 days 90 tabs 3RF Coding Level of Care Code Est Pt Level 4 (98327) Diagnoses Hypercalciuria R82.994 Hyperoxaluria R82.992 Bilateral kidney stones N20.0
== END 2024-06-15 13:49 | disposition home or self-care (01) ==
PROVIDERS: PCP Internal Medicine; Visit Provider Urology
DX: R82.994 Hypercalciuria (principal); R82.992 Hyperoxaluria; N20.0 Calculus of kidney; Z13.9 Encounter for screening, unspecified
CPT/HCPCS: 99214

== ENCOUNTER → 2024-06-15 13:01 | Outpatient (BNVA) | payer BC, SELFPAY | PROVIDERS: PCP Internal Medicine; Visit Provider Urology | DX: N20.0 Calculus of kidney (principal); R82.994 Hypercalciuria; R82.992 Hyperoxaluria; N40.0 Benign prostatic hyperplasia without lower urinary tract symptoms; Z79.899 Other long term (current) drug therapy | CPT/HCPCS: 81003 ==

== ENCOUNTER 2024-09-28 10:22 | Outpatient (REF) | payer BC, SELFPAY ==
--- NOTE | ~2024-09-28 | US_ITS ---
EXAMINATION: US RETROPERITONEAL LIMITED (RENAL ONLY) CLINICAL INFORMATION: Renal stones. COMPARISON: Most recent renal ultrasound dated 05/29/2024. TECHNIQUE: Grayscale and Doppler images of the kidneys/retroperitoneum were obtained. FINDINGS: RIGHT KIDNEY: 13.8 x 6.2 x 6.1 cm (SAG x AP x TRV). The kidney is normal in size, contour, and echogenicity. Renal cortical thickness is normal. No focal parenchymal lesion. Multiple right-sided renal stones measuring up to 0.6, 0.3, and 0.3 cm. No hydronephrosis. LEFT KIDNEY: 14.1 x 6.1 x 5.9 cm (SAG x AP x TRV). The kidney is normal in size, contour, and echogenicity. Renal cortical thickness is normal. No focal parenchymal lesion. Multiple left-sided renal stones measuring up to 0.6, 0.6, and 0.8 cm. No hydronephrosis. US/US renal BI IMPRESSION: Multiple bilateral renal stones measuring up to 0.8 cm on the left. No hydronephrosis. Electronically signed by: Mario Dawson MD 09/28/2024 03:09 PM EDT Workstation: [id number]
== END 2024-09-28 10:23 | disposition home or self-care (01) ==
LOC: HO.US 10:22
PROVIDERS: PCP Internal Medicine; Visit Provider Urology
DX: N20.0 Calculus of kidney (principal)
CPT/HCPCS: 76775

== ENCOUNTER 2024-10-04 07:30 | Outpatient (REF) | payer BC, SELFPAY ==
[2024-10-10 20:24] LABS: Stone Source KIDNEY
== END 2024-10-04 07:31 | disposition home or self-care (01) ==
LOC: HO.LNP 07:30
PROVIDERS: Visit Provider Urology
DX: N20.0 Calculus of kidney (principal)
CPT/HCPCS: 82365; 88300

== ENCOUNTER 2025-03-21 06:10 | Outpatient (REF) | payer BC, SELFPAY ==
--- OUTSIDE RECORDS SUMMARY | 2025-03-21 06:13 | XMS_ITS | Clinical Summary ---
Author Organization [employer] [facility] [employer] Address 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 Name Role Phone Pcp, No Primary Care Provider [phone] Allergies No known active allergies Medications allopurinoL (ZYLOPRIM) 100 MG tablet Take 1 tablet (100 mg total) by mouth 06/02/2021 Active amLODIPine (NORVASC) 10 MG tablet 09/10/2023 Active amLODIPine (NORVASC) 2.5 MG tablet Take 1 tablet (2.5 mg total) by mouth 06/02/2021 Active FLUoxetine (PROzac) 40 MG capsule 09/09/2023 Active hydroCHLOROthiaz leonel (HYDRODIURIL) 25 MG tablet 09/09/2023 Active tamsulosin HCl (TAMSULOSIN ORAL) Take 0.4 mg by mouth 06/02/2021 Active lisinopriL (ZESTRIL) 40 MG tablet Take 1 tablet (40 mg total) by mouth daily Active Immunizations Name Administration Dates Next Due Fluzone Trivalent Prefilled Syringe (18+ months) 09/17/2023 Shingrix Recombinant Dose 03/12/2022 Social History Tobacco Use Types Packs/Day Years Used Date Smoking Tobacco: Never Smokeless Tobacco: Never Tobacco Cessation:Counseling Given: Not Answered Sex and Gender Information Value Date Recorded Sex Assigned at Not on file Legal Sex Male 11:11 AM EDT Gender Identity Not on file Sexual Orientation Not on file Last Filed Vital Signs Vital Sign Reading Time Taken Comments Blood Pressure 118/64 09/17/2023 1:52 PM EDT Pulse 96 09/17/2023 1:52 PM EDT Temperature 36.7 ??C (98.1 ??F) 09/17/2023 1:52 PM ED T Respiratory Rate 18 09/17/2023 1:52 PM EDT Oxygen Saturation 98% 09/17/2023 1:52 PM EDT Inhaled Oxygen Concentration - - Weight - - Height - - Body Mass Index - - Plan of Treatment Health Maintenance Due Date Last Done Comments Colorectal Cancer: COLONOSCO PY Screening every 10 yrs (or Modifier) 1968 Depression: Screening Annual ly using PHQ-2/9 in Adults 18 yrs or above (or HM Modifier)([facility]) 1968 Hepatitis C Virus Infection in Adolescents and Adults: Screening (or Modifier) ([facility]) [address] [facility] Screening Reminder: Angella harper for all adults ([facility]) 1986 Tobacco Smoking Cessation: i n Adults excluding Women: Behavioral and Pharmacotherapy Interventions ([facility]) 1986 DTaP/Tdap/Td Vaccines ([facility]) (1 - Tdap) 1987 Lipid Screening: Every 5 yrs for Men aged 35+ (or HM Modifier) ([facility]) 2004 Colorectal Cancer Screening 45 -75 Yrs (or HM Modifier) 2013 Colorectal Cancer: FLEXIBLE SIGMOIDOSCOPY Screening every 5 yrs 2013 Colorectal Cancer: Fecal Imm unochemical Test (FIT) Annually [facility] 2013 Colorectal Cancer: High-sens itivity gFOBT Screening Annually [facility] 2013 Colorectal Cancer: Stool Col oguard Screening every 3 yrs 2013 Colorectal Cancer:CT Colonog pascual Screening every 5 yrs 2013 Pneumococcal Vaccination Scr eening: Patients 50+ yrs of age ([facility]) (1 of 1 - PCV) 2018 Zoster/Shingles Vaccine Seri es Screening: Adults aged 18+ yrs (or HM Modifiers)([facility]) (2 of 2) 05/07/2022 03/12/2022 COVID-19 Vaccine Screening: Initial Series and Booster Status ([facility]) ( - 2023- season) 2024 Flu Vaccination: Yearly for ages 18mos through 64 years (or Modifier)([facility]) 06/28/2025 09/17/2023 Medical Devices Not on file Insurance [facility] Care Teams Rug Cutter Helper Relationship Specialty Start Date End Date Pcp, No PCP - General Family Medicine 03/12/22
[2025-03-21 06:32] LABS: MANUAL DIFF FLAG NO
[2025-03-21 07:21] LABS: Appearance Urine Clear; Color Urine Yellow; Glucose Urine UA Negative (Negative); Leukocyte Esterase Urine Small (1+) (Negative); Nitrite Urine Negative (Negative); Specific Gravity - Urine 1.015 (1.005-1.025); UMIC TRIGGER UACC YES; Urine Blood Negative (Negative); Urine Ketones Negative (Negative); Urine Protein Negative (Neg-Trace)
[2025-03-21 07:24] LABS: Estimated Average Glucose 105 mg/dL; Hemoglobin A1C 123.9418 umol/L; Hemoglobin A1c % 5.3 % (<6.0); Total Hemoglobin (HGBA1C) 3570.6466 umol/L
[2025-03-21 07:26] LABS: Basophils Percent Auto 0.4 % (0-2); Eosinophils Absolute Auto 0.3 X10*3/uL (0.0-0.4); Eosinophils Percent Auto 2.9 % (0-4); Hematocrit 40.2 % (42.0-52.0); Hemoglobin 14.1 g/dl (14.0-18.0); Imm Gran Abs Auto 0.04 X10*3/uL (0.00-0.03); Imm Gran Pct Auto 0.4 % (0.0-0.4); Lymphocytes Absolute Auto 2.3 X10*3/uL (1.2-4.9); Mean Corpuscular HGB Conc 35.1 g/dl (31.0-36.0); Mean Corpuscular Hemoglobin 29.1 pg (27.0-33.0); Mean Corpuscular Volume 83.1 fL (80.0-98.0); Mean Platelet Volume 10.6 fL (9.4-12.4); Monocytes Absolute Auto 0.5 X10*3/uL (0.1-1.2); Monocytes Percent Auto 5.9 % (2-11); Neutrophils Absolute Auto 5.8 x10*3/uL (2.0-8.3); Neutrophils Percent Auto 64.4 % (45-73); Platelet Count 226 X10*3/uL (160-400); Red Blood Count 4.84 X10*6/uL (4.60-5.80); Red Cell Distribution Width 13.6 % (11.0-16.0)
[2025-03-21 07:31] LABS: Bacteria Urine None Seen (None Seen); Hyaline Casts Urine 0-2 /LPF (0-2); RBC Urine 0-2 /HPF (0-2); Squamous Epithelial Cell Urine 0-2 /HPF (0-2); UACC Culture Trigger YES; WBC Urine 0-5 /HPF (0-5)
[2025-03-21 07:48] LABS: Alanine Aminotransferase 24 U/L (0-40); Albumin Level 4.2 g/dL (3.5-5.0); Alkaline Phosphatase 70 U/L (39-117); Anion Gap 11 (12-20); Aspartate Amino Transferase 24 U/L (5-37); Bilirubin Total 0.8 mg/dL (0.0-1.0); Blood Urea Nitrogen 15 mg/dL (9-16); Calcium 9.6 mg/dL (8.4-10.2); Carbon Dioxide 28 mmol/L (22-29); Chloride 105 mmol/L (96-108); Cholesterol 185 mg/dL (<200); Estimated Glomerular Filt Rate > 60; Glucose Fasting 110 mg/dL (60-99); HDL Cholesterol 40 mg/dL (>40); LDL Cholesterol Calculated 130 mg/dL (<100); Sodium 140 mmol/L (135-145); Total Protein 6.9 g/dL (6.5-8.0); Triglycerides 77 mg/dL (<150)
[2025-03-21 07:59] LABS: Prostate Specific Antigen 0.63 ng/mL (<0.05-4.0)
[2025-03-21 08:07] LABS: TSH reflex Free T4 1.56 uIU/mL (0.32-4.0); Vitamin D 25-OH Total 36.6 ng/mL (>30)
== END 2025-03-21 06:11 | disposition home or self-care (01) ==
LOC: HO.LAB 06:10
PROVIDERS: PCP Internal Medicine; Visit Provider Internal Medicine
DX: Z00.00 Encounter for general adult medical examination without abnormal findings (principal); E55.9 Vitamin D deficiency, unspecified; E78.00 Pure hypercholesterolemia, unspecified; D64.9 Anemia, unspecified; R73.01 Impaired fasting glucose; N40.0 Benign prostatic hyperplasia without lower urinary tract symptoms; Z12.5 Encounter for screening for malignant neoplasm of prostate
CPT/HCPCS: 36415; 80053; 80061; 81001; 82306; 83036; 84153; 84443; 85025; 87086

== ENCOUNTER 2025-03-29 08:53 | Outpatient (AMB) | payer BC, SELFPAY ==
--- NOTE | 2025-03-29 08:57 | A.OFFPC_ITS ---
Vital Signs 03/29/25 08:58 Height 5 ft 10 in Weight 250 lb 2 oz BMI 35.9 BP 126/64 Blood Pressure Location Lt brachial Position Sitting Pulse 67 Pulse Source Pulse Oximeter Pulse Oximetry (%) 95 Oxygen Delivery Method Room Air Intake Visit Reasons: PE Rail Equipment Operator Required: No Accompanied by: Self / Same As Patient Allergies No Known Allergies [No Known Allergies*] Allergy (Verified 03/29/25 09:14) Medication List - Last Reconciled 03/29/25 by Rosendo Easton MD allopurinol 100 mg PO DAILY amlodipine 10 mg PO DAILY 90 days [CPAP device with all related supplies Use as directed - recommended setting of 7 cm H2O] fluoxetine 80 mg (2 x 40 mg) PO DAILY 90 days hydrochlorothiazide 25 mg PO DAILY lisinopril 40 mg PO DAILY naproxen 500 mg PO BID 30 days pyridoxine (vitamin B6) 100 mg PO DAILY 90 days tamsulosin 0.8 mg (2 x 0.4 mg) PO Q24H Tobacco use date assessed: 03/23/24 Dental Screening Dental Screen Date: 03/29/25 Did you have a dental visit in the last 12 months?: Yes Did you have a dental problem in the last 6 months where you did not have access to dental care?: No Was dental information given to patient?: Patient has dentist MARY WETS HPI Details Patient comes in today for his annual physical examination States that he feels okay He denies any headaches or dizziness Denies any chest pains, no SOB No nausea/vomiting, no abdominal pain No change in bowel habits noted Denies any acute urinary symptoms He had his follow up labs done last week - to discuss his results He is up-to-date with his colon cancer screening and is not due for repeat colonoscopy until 2028 ON LICENSE OF [facility] Medical History (Updated 03/29/25 @ 10:05 by Rosendo Easton MD) Peripheral neuropathy Obesity (BMI 30-39.9) Impaired fasting glucose Primary osteoarthritis of both knees Carpal tunnel syndrome, right Uric acid renal calculus Dysphagia Benign prostatic hyperplasia Morbid obesity with BMI of 40.0-44.9, adult Anxiety Obstructive sleep apnea Benign essential hypertension Surgical History History of lithotripsy (~03/29/18) History of lithotripsy History of surgery History of colonoscopy History of vasectomy History of tonsillectomy Family History Father No problems noted. Mother No problems noted. Brother Diabetes mellitus Social History Housing: House Alcohol intake: current Alcohol intake frequency: holidays/special occasions only Patient Tobacco Use Status: Former Tobacco user e-Cigarette/Vaping Use: Never Used Second Hand Smoke Exposure: Yes service: No Current occupational status: employed Cognitive needs: No Hearing needs: No Vision needs: Yes Questionnaire PHQ-9 Over the last 2 weeks, how often have you been bothered by any of the following problems? 1. Little interest or pleasure in doing things: not at all 2. Feeling down, depressed, or hopeless: not at all 3. Trouble falling or staying asleep, or sleeping too much: not at all 4. Feeling tired or having little energy: not at all 5. Poor appetite or overeating: not at all 6. Feeling bad about yourself - or that you are a failure or have let yourself or your family down: not at all 7. Trouble concentrating on things, such as reading the newspaper or watching television: not at all 8. Moving or speaking so slowly that other people could have noticed. Or the opposite - being so fidgety or restless that you have been moving around a lot more than usual: not at all 9. Thoughts that you would be better off or of hurting yourself in some w ay: not at all Total score: 0 Depression Screening Interpretation: Negative Depression Screening Done: Yes 38648 - PHQ-9 Billing: Yes Source: Developed by Drs. Eulalio Levy, Irene Aponte, Janak Orourke and colleagues, with an educational namrata from [employer]. Thrive Questionnaire Date Thrive assessed: 03/29/25 I am a: Patient What is your living situation today?: I have a steady place to live Within the past 12 months, did the food you bought not last and you didn't have the money to get more?: Never true Within the past 12 months, did you worry whether your food would run out before you got money to buy more?: Never true Do you have trouble paying for medicines?: No Do you have trouble getting transportation to medical appointments?: No Do you have trouble paying your heating and electricity bill?: No Do you have trouble taking care of your child, family member or friend?: No Do you have trouble with day-to-day activities such as bathing, preparing meals, shopping, managing finances, etc.?: No Are you currently unemployed and looking for a job?: No Are you interested in more education?: Yes Please select the resources that you would like help with: Education and None Currently or been in a relationship where the following occur: No concerns reported THRIVE Score: 0 AUDIT C Alcohol Use Questionnaire (AUDIT-C) 1. How often do you have a drink containing alcohol?: 2-4 times a month 2. How many drinks containing alcohol do you have on a typical day when you are drinking?: 3 or 4 3. How often do you have six or more drinks on one occasion?: Less than monthly Total Score: 4 Score Reviewed/Action Taken: Yes ELMA-7 AMB Questionnaire ELMA-7 Date ELMA - 7 assessed: 03/29/25 Feeling nervous, anxious, or on edge: 0 = Not at all Not being able to stop or control worryin = Not at all Worrying too much about different things: 0 = Not at all Trouble relaxin = Not at all Being so restless that it is hard to sit still: 0 = Not at all Becoming easily annoyed or irritable: 0 = Not at all Feeling afraid as if something awful might happen: 0 = Not at all Total ELMA-7 score (0-4 normal; 5-9 mild; 10-14 moderate; 15-21 severe): 0 Source: Developed by Drs. Eulalio Levy, Irene Aponte, Janak Orourke and colleagues, with an educational namrata from [employer]. Review of Systems Const Denies chills, Denies fatigue, Denies fever(s), Denies headache(s), Denies malaise and Denies weakness Eyes Denies blurry vision, Denies change in vision, Denies irritation and Denies itchy eyes ENT Denies dysphagia, Denies dizziness, Denies otalgia, Denies headache(s), Denies nasal congestion, Denies neck pain, Denies odynophagia and Denies sore throat Card Denies rapid heart rate, Denies irregular heart rhythm, Denies palpitations and Denies dyspnea Resp Denies chest congestion, Denies cough, Denies dyspnea and Denies wheezing GI Denies abdominal pain, Denies bloating, Denies constipation, Denies dysphagia, Denies heartburn, Denies diarrhea, Denies nausea, Denies odynophagia and Denies vomiting Denies hematuria, Denies difficulty urinating, Denies dysuria, Denies urinary frequency and Denies urinary urgency Musc Denies back pain, Denies arthralgias, Denies joint swelling, Denies muscle weakness, Denies neck pain, Reports numbness (persistent over both feet) and Reports tingling (persistent over both feet ) Skin/Breast Denies change in pigmentation, Denies lesions, Denies rash and Denies unusual bruising Neuro Denies dizziness, Denies headache(s), Reports numbness (persistent over both feet), Reports tingling (persistent over both feet ) and Denies weakness Endo Denies fatigue and Denies palpitations Aller/Immun Denies itchy eyes and Denies wheezing Physical exam (Primary Care) Vital Signs: Last Vital Signs Pulse 67 03/29/25 08:58 BP 126/64 03/29/25 08:58 Pulse Ox 95 03/29/25 08:58 Oxygen Delivery Method Room Air 03/29/25 08:58 BMI result Body Mass Index 35.9 Tobacco/Smoking Status: Tobacco use Status Tobacco use date assessed 03/23/24 03/29/25 08:58 Patient Tobacco Use Status Former Tobacco user 03/29/25 08:58 e-Cigarette/Vaping Use Never Used 03/29/25 08:58 PHQ-9: PHQ-9 Score PHQ-9: Total score 0 03/29/25 08:58 Depression Screening Interpretation: Negative Thrive Assessment: Date of Thrive Assessment Date Thrive assessed 03/29/25 03/29/25 09:06 Currently or been in a relationship where the following occur: No concerns reported Const General: no acute distress, alert and awake Orientation/consciousness: patient oriented x3 HENMT Head: Yes normocephalic and Yes atraumatic Ears: external ears normal, TM's normal bilaterally and EAC's normal General nose exam: No nasal discharge present Face and sinus: Yes normal facial exam and Yes sinuses nontender Teeth and gingiva: dentition normal Throat: Yes posterior oropharynx normal and Yes tonsils normal (no TP congestion) Eyes Eyelids: Yes eyelids normal Conjunctivae: conjunctivae normal Pupils: Equal, round and reactive pupils present EOM: EOMs intact bilaterally Neck Neck: Yes no lymphadenopathy and Yes supple Thyroid: Thyroid normal Resp Auscultation: clear to auscultation bilaterally, no rales and no wheezes Cardio Rate: regular rate Rhythm: regular rhythm Heart sounds: no murmurs GI Palpation (GI): Soft to palpation, nontender and No hepatosplenomegaly present Auscultation: normal bowel sounds General: Yes no CVA tenderness Back/Spine/Pelvis Back: no CVA tenderness Thoracic/Lumbar Spine: thoracic and lumbar spine normal to inspection Skin Lesions: no lesions Rashes: no rashes Neuro General: patient oriented x3, moves all extremities, no focal motor deficits and CN's II-XI intact bilaterally Cranial nerves: Yes Equal, round and reactive pupils present Cognition (Neuro): normal cognition Gait exam (Neuro): Normal gait present Extrem General: Yes no clubbing, cyanosis or edema Results Reviewed Results Reviewed: Laboratory Tests 03/21/25 03/21/25 06:26 06:30 WBC 9.0 Hgb 14.1 Hct 40.2 L Plt Count 226 Sodium 140 Potassium 4.0 Creatinine 0.83 Estimated GFR > 60 Fasting Glucose 110 H Hemoglobin A1c % 5.3 Calcium 9.6 AST 24 ALT 24 Triglycerides 77 Cholesterol 185 LDL Cholesterol, Calc 130 H HDL Cholesterol 40 L Prostate Specific Ag 0.63 25-OH Vitamin D Total 36.6 TSH 1.56 Urine pH 6.0 Ur Specific [place] 1.015 Urine Protein Negative Urine Glucose (UA) Negative Urine Blood Negative Urine Nitrite Negative Ur Leukocyte Esterase Small (1+) H Coding Level of Care Code Est Pt Prev Care 40-64y(25654) Diagnoses Annual physical exam Z00.00 Benign essential hypertension I10 Mixed hyperlipidemia E78.2 Impaired fasting glucose R73.01 Obstructive sleep apnea G47.33 Peripheral polyneuropathy G62.9 Peripheral neuropathy type: polyneuropathy, unspecified Carpal tunnel syndrome, right G56.01 Primary osteoarthritis of both knees M17.0 Uric acid renal calculus N20.0 Benign prostatic hyperplasia with urinary obstruction N40.1; N13.8 Lower urinary tract symptom presence: symptoms present Lower urinary tract symptom detail: urinary obstruction Anxiety F41.9 Obesity (BMI 30-39.9) E66.9 Additional Codes PHQ-9 - 48160 - PHQ-9 Billing: Yes ([id number]) Assessment & Plan Assessment & Plan (1) Annual physical exam: Code(s): Z00.00 - Encounter for general adult medical examination without abnormal findings Category: Medical Plan: Results of his labs done last week reviewed and discussed with patient He is up-to-date with his colon cancer screening and is not due for repeat colonoscopy until 2028 (2) Benign essential hypertension: Code(s): I10 - Essential (primary) hypertension Category: Medical Plan: Reinforced low sodium diet - goal is systolic BP of 120 mm or less Continue Lisinopril 40 mg QD, HCTZ 25 mg QD and Amlodipine 10 mg QD Patient is reminded to continue monitoring his blood pressure regularly (3) Mixed hyperlipidemia: Code(s): E78.2 - Mixed hyperlipidemia Category: Medical Plan: Patient is advised that his cholesterol levels have increased slightly from previous and his LDL cholesterol is now at 130 mg/dl Reinforced low cholesterol diet - patient states that he has been eating a lot of eggs and shrimps lately, which are high-cholesterol foods Will recheck his labs and fasting lipids in 1 year for follow up (4) Impaired fasting glucose: Code(s): R73.01 - Impaired fasting glucose Category: Medical Plan: His FBS is still elevated at 110 mg/dl but his HgbA1c has improved to 5.3% on his recent labs (was at 5.9% last year) Reinforced low calorie/low carb diet, exercise as tolerated and lose weight (5) Obstructive sleep apnea: Code(s): G47.33 - Obstructive sleep apnea (adult) (pediatric) Category: Medical Plan: Patient states that his CPAP device is still helping him a lot Continue using his CPAP device when sleeping at night daily but with his recent significant weight loss, have advised patient to reach out to Sleep Medicine to schedule a follow up appointment as he may benefit from repeat in-lab sleep study to reassess his CPAP requirements (6) Peripheral neuropathy: Comment: EMG and NCV done back in 02/2020 revealed (+) moderately severe sensory and motor peripheral neuropathy with features of axonal loss and demyelination Code(s): G62.9 - Polyneuropathy, unspecified Category: Medical Qualifiers: Peripheral neuropathy type: polyneuropathy, unspecified Qualified Code(s): G62.9 - Polyneuropathy, unspecified Plan: EMG and NCV done back in 02/2020 revealed (+) moderately severe sensory and motor peripheral neuropathy with features of axonal loss and demyelination Patient states that his symptoms are mostly persistent numbness in both of his feet but he denies any pain and states that the symptoms are tolerable for him Will consider sending him for repeat testing if his symptoms progress (7) Carpal tunnel syndrome, right: Code(s): G56.01 - Carpal tunnel syndrome, right upper limb Category: Medical Plan: Confirmed on EMG/NCV done a few years ago States that he has been advised by Dr. Fuentes to wear his wrist splint regularly to help manage his symptoms and to follow up with Dr. Fuentes on an as-needed basis (8) Primary osteoarthritis of both knees: Code(s): M17.0 - Bilateral primary osteoarthritis of knee Category: Medical Plan: Follow up with [facility] as scheduled Has reportedly been advised by orthopedics to try losing weight first before any intervention can be considered (9) Uric acid renal calculus: Code(s): N20.0 - Calculus of kidney Category: Medical Plan: Reports no significant or acute symptoms lately Continue Allopurinol 100 mg QD and Pyridoxine 50 mg QD Repeat renal US done last year in September 2024 revealed (+) multiple bilateral renal stones measuring up to 0.8 cm on the left; no hydronephrosis noted Follow up with urology as scheduled - he is now seeing Dr. Sommers (10) Benign prostatic hyperplasia: Code(s): N40.0 - Benign prostatic hyperplasia without lower urinary tract symptoms Category: Medical Qualifiers: Lower urinary tract symptom presence: symptoms present Lower urinary tract symptom detail: urinary obstruction Qualified Code(s): N40.1 - Benign prostatic hyperplasia with lower urinary tract symptoms; N13.8 - Other obstructive and reflux uropathy Plan: Continue Tamsulosin 0.4 mg 2 tablets Q HS Follow up with urology as scheduled (11) Anxiety: Code(s): F41.9 - Anxiety disorder, unspecified Category: Medical Plan: Continue Fluoxetine 80 mg QD Follow up with psychiatry as scheduled (12) Obesity (BMI 30-39.9): Code(s): E66.9 - Obesity, unspecified Category: Medical Plan: Reinforced diet/exercise as tolerated/lose weight - he has been able to lose about 50 pounds since his last visit through [facility] Plan To return in 1 year for his next annual physical examination Orders: Orders Comprehensive [place]. Panel Fast 1 Year E78.00 - Pure hypercholesterolemia, unspecified, Z00.00 - Encounter for general adult medical examination without abnormal findings Vitamin D 25-OH Total 1 Year E55.9 - Vitamin D deficiency, unspecified, Z00.00 - Encounter for general adult medical examination without abnormal findings TSH reflex Free T4 1 Year E78.00 - Pure hypercholesterolemia, unspecified, Z00.00 - Encounter for general adult medical examination without abnormal findings Complete Blood Count Auto Diff 1 Year D64.9 - Anemia, unspecified, Z00.00 - Encounter for general adult medical examination without abnormal findings Lipid Panel 1 Year E78.00 - Pure hypercholesterolemia, unspecified, Z00.00 - Encounter for general adult medical examination without abnormal findings Prostate Specific Antigen 1 Year N40.0 - Benign prostatic hyperplasia without lower urinary tract symptoms, Z00.00 - Encounter for general adult medical examination without abnormal findings UA CC w/rflx Micro + Cult 1 Year R30.0 - Dysuria, Z00.00 - Encounter for general adult medical examination without abnormal findings Hemoglobin A1c 1 Year R73.01 - Impaired fasting glucose, Z00.00 - Encounter for general adult medical examination without abnormal findings Uric Acid 1 Year N20.0 - Calculus of kidney Medications: Changed From tamsulosin 0.8 mg (2 x 0.4 mg) PO Q24H 90 caps 0RF To tamsulosin 0.8 mg (2 x 0.4 mg) PO Q24H 90 days 180 caps 1RF
[2025-03-29 08:58] VITALS: BP 126/64; PULSE 67; O2SAT 95; BMI 35.9
--- OUTSIDE RECORDS SUMMARY | 2025-03-29 09:23 | XMS_ITS | Encounter Summary ---
Author Organization [facility] Address [address] [place] [address] Phone Care Team Providers Care Cut Filer Name Role Phone Rosendo Easton MD Primary Care Provider [phone]- [phone] Encounter Details Date Type Department Care Team (Late st Contact Info) Description 03/03/2023 Documentation Only [facility], [address] [place] [address] [place], [place] [address] [place] [address] Social History Tobacco Use Types Packs/Day Years Used Date Smoking Tobacco: Former Cigarettes Q uit: 11/28/2006 Comments:Smoking History Inf o:Every day Alcohol Use Standard Drinks/Week Comments Yes 0 (1 standard drink = 0.6 oz pure alcohol) Alcoholic Drinks/day: Occasional social drink Sex and Gender Information Value Date Recorded Sex Assigned at Not on file Legal Sex Male 5:08 PM EST Gender Identity Not on file Sexual Orientation Not on file documented as of this encounter Plan of Treatment Not on file documented as of this encounter Visit Diagnoses Not on filedocumented in this encounter Care Teams Cut Filer Relationship Specialty Start Date End Date Rosendo Easton MD [address] [place] [address] [phone] PCP - General Internal Medicine 03/09/23 documented as of this encounter
--- OUTSIDE RECORDS SUMMARY | 2025-03-29 09:23 | XMS_ITS | Clinical Summary ---
Author Organization [facility], Address [address] [place] [address] [place] [address] Phone Care Team Providers Care Airplane Patroller Name Role Phone Rosendo Easton MD Primary Care Provider [phone]- [phone] Medications hydroCHLOROthiaz leonel 25 MG tablet Take 1 tablet (25 mg total) by mouth 1 (one) time each day 90 tablet 3 04/08/2023 Active Social History Tobacco Use Types Packs/Day Years [...] on file Sexual Orientation Not on file Plan of Treatment Health Maintenance Due Date Last Done Comments Hepatitis B Vaccine (1 of 3 - 19+ 3-dose series) 03/07 Colorectal Cancer Screening: Annual FOBT 2017 Colorectal Cancer Screening: Colonoscopy 2017 Colorectal Cancer Screening: Sigmoidoscopy 2017 Pneumococcal Vaccine: 50+ Years (1 of 1 - PCV) 018 Influenza Vaccine (Season Ended) 2025 Insurance [facility] Care Teams Airplane Patroller Relationship Specialty Start Date End Date Rosendo Easton MD [address] [place] [address] PCP - General Internal Medicine 03/09/23
--- OUTSIDE RECORDS SUMMARY | 2025-03-29 09:23 | XMS_ITS | Encounter Summary ---
Author Organization [facility] Address [address] [facility] [address] [place] [address] Phone Care Team Providers Care Blood Or Blood Bank Technician Name Role Phone Rosendo Easton MD Primary Care Provider [phone]- [phone] Reason for Visit * Reason Comments Med Refill Encounter Details Date Type Department Care Team (Late st Contact Info) Description 03/31/2024 Refill [facility], [address] [place] [address] Romaine Sneed MD [address] [place] [address] Social History Tobacco Use Types Packs/Day Years [...] on filedocumented in this encounter Care Teams Blood Or Blood Bank Technician Relationship Specialty Start Date End Date Rosendo Easton MD [address] [place], [place] [phone] PCP - General Internal Medicine 03/09/23 documented as of this encounter
--- OUTSIDE RECORDS SUMMARY | 2025-03-29 09:23 | XMS_ITS | Clinical Summary ---
Author Organization [facility] Address [address] [facility] [place] [address] Care Team Providers Care Top Stop Attacher Name Role Phone Pcp, No Primary Care Provider [phone] Allergies No known active allergies Medications allopurinoL [...] Adults 18 yrs or above (or HM Modifier)([facility]) 1986 Hepatitis C Virus Infection in Adolescents and Adults: Screening (or Modifier) ([facility]) [address] [facility] Screening Reminder: Angella harper for all adults ([facility]) 1986 Tobacco Smoking Cessation: i n Adults excluding Women: Behavioral and Pharmacotherapy Interventions ([facility]) 1986 DTaP/Tdap/Td Vaccines ([facility]) (1 - Tdap) 1987 Lipid Screening: Every 5 yrs for Men aged 35+ (or HM Modifier) ([facility]) 2004 Colorectal Cancer Screening 45 -75 Yrs (or HM Modifier) 2013 Colorectal Cancer: FLEXIBLE SIGMOIDOSCOPY Screening every 5 yrs 2013 Colorectal Cancer: Fecal Imm unochemical Test (FIT) Annually [facility] 2013 Colorectal Cancer: High-sens itivity gFOBT Screening Annually [facility] 2013 Colorectal Cancer: Stool Col oguard Screening every 3 yrs 2013 Colorectal Cancer:CT Colonog pascual Screening every 5 yrs 2013 Pneumococcal Vaccination Scr eening: Patients 50+ yrs of age ([facility]) (1 of 1 - PCV) 2018 Zoster/Shingles Vaccine Seri es Screening: Adults aged 18+ yrs (or HM Modifiers)([facility]) (2 of 2) 05/07/2022 03/12/2022 COVID-19 Vaccine Screening: Initial Series and Booster Status ([facility]) ( - 2023- season) 2024 Flu Vaccination: Yearly for ages 18mos through 64 years (or Modifier)([facility]) 06/28/2025 09/17/2023 Medical Devices Not on file Insurance [facility] Care Teams Top Stop Attacher Relationship Specialty Start Date End Date Pcp, No PCP - General Family Medicine 03/12/22
--- OUTSIDE RECORDS SUMMARY | 2025-03-29 09:23 | XMS_ITS | Encounter Summary ---
Author Organization [facility] Address [address] [facility] [address] [place] [address] Phone Care Team Providers Care Robotics Engineer Name Role Phone Rosendo Easton MD Primary Care Provider [phone]- [phone] Reason for Visit * Reason Comments Med Refill Encounter Details Date Type Department Care Team (Late st Contact Info) Description 03/12/2024 Refill [facility] [place], [address] [place] [address] Romaine Sneed MD [address] [facility] [address] [place] [address] Social History Tobacco Use Types [...] on filedocumented in this encounter Care Teams Robotics Engineer Relationship Specialty Start Date End Date Rosendo Easton MD [address] [place], [place] [phone] PCP - General Internal Medicine 03/09/23 documented as of this encounter
== END 2025-03-29 09:41 | disposition home or self-care (01) ==
LOC: HO.HMCH 08:54
PROVIDERS: PCP Internal Medicine; Visit Provider Internal Medicine
DX: Z00.00 Encounter for general adult medical examination without abnormal findings (principal); I10 Essential (primary) hypertension; Z68.35 Body mass index [BMI] 35.0-35.9, adult; E66.9 Obesity, unspecified; E78.2 Mixed hyperlipidemia; R73.01 Impaired fasting glucose; G47.33 Obstructive sleep apnea (adult) (pediatric); G62.9 Polyneuropathy, unspecified; G56.01 Carpal tunnel syndrome, right upper limb; M17.0 Bilateral primary osteoarthritis of knee; N20.0 Calculus of kidney; N40.1 Benign prostatic hyperplasia with lower urinary tract symptoms

== ENCOUNTER → 2025-03-29 08:53 | Outpatient (BNVA) | payer BC, SELFPAY | PROVIDERS: PCP Internal Medicine; Visit Provider Internal Medicine | DX: Z00.00 Encounter for general adult medical examination without abnormal findings (principal); I10 Essential (primary) hypertension; E78.2 Mixed hyperlipidemia; R73.01 Impaired fasting glucose; G47.33 Obstructive sleep apnea (adult) (pediatric); G62.9 Polyneuropathy, unspecified; G56.01 Carpal tunnel syndrome, right upper limb; M17.0 Bilateral primary osteoarthritis of knee; N20.0 Calculus of kidney; N40.1 Benign prostatic hyperplasia with lower urinary tract symptoms; N13.8 Other obstructive and reflux uropathy; F41.9 Anxiety disorder, unspecified; E66.9 Obesity, unspecified; Z68.35 Body mass index [BMI] 35.0-35.9, adult; Z79.899 Other long term (current) drug therapy | CPT/HCPCS: 96127 ==

== ENCOUNTER 2025-05-29 07:17 | Outpatient (REF) | payer BC, SELFPAY ==
--- NOTE | ~2025-05-29 | XR_ITS ---
EXAMINATION: XR ABDOMEN KUB CLINICAL INDICATION: N20.0 - Calculus of kidney COMPARISON: February 04, 2023 TECHNIQUE: AP view of the abdomen. FINDINGS: Multiple punctate calcifications project in the region of the left kidney in both the upper pole and lower pole. The largest is in the upper pole and measures 7 mm. Calcifications in the lower pole have somewhat of a paintbrush appearance There are a few obscured calcifications projecting in the region of the right kidney that appear more punctate in the region of the mid to lower kidney and somewhat paintbrush like in the mid to upper right kidney. Stable phleboliths present in the right hemipelvis. There is soft tissue calcification near the left shoulder tuberosity and adjacent to the left femoral neck, unchanged Overall, calcifications appear stable to slightly increased compared to the prior. XR/XR KUB IMPRESSION: Multiple kidney stones and possible nephrocalcinosis raising question of medullary sponge kidney or renal tubular ectasia IMPRESSION: Unremarkable examination. Electronically signed by: Eugenio Davis MD 05/29/2025 11:26 AM EDT
--- OUTSIDE RECORDS SUMMARY | 2025-05-29 07:19 | XMS_ITS | Encounter Summary ---
Author Organization [facility] Address [address] [place] [address] Phone Care Team Providers Care Quilting Machine Operator Name Role Phone Rosendo Easton MD Primary Care Provider [phone] Encounter Details Date Type Department Care Team (Late st Contact Info) Description 03/03/2023 Documentation Only [facility] [place], [address] [place] [address] [place], [place] [address] [place] [address] Social History Tobacco Use Types [...] on filedocumented in this encounter Care Teams Quilting Machine Operator Relationship Specialty Start Date End Date Rosendo Eastno MD [address] [place] [id number] PCP - General Internal Medicine 03/09/23 documented as of this encounter
--- OUTSIDE RECORDS SUMMARY | 2025-05-29 07:19 | XMS_ITS | Clinical Summary ---
Author Organization [facility] Address [address] [address] Care Team Providers Care Merry Go Round Operator Name Role Phone Pcp, No Primary Care Provider [phone] Allergies No known active allergies Medications allopurinoL [...] 96 09/17/2023 1:52 PM EDT Temperature 36.7 C (98.1 F) 09/17/2023 1:52 PM EDT Respiratory Rate 18 09/17/2023 1:52 PM EDT [...] Adults 18 yrs or above (or HM Modifier)([facility]) 1986 Hepatitis C Virus Infection in Adolescents and Adults: Screening (or Modifier) ([facility]) [address] [facility] Screening Reminder: Angella harper for all adults ([facility]) 1986 Tobacco Smoking Cessation: i n Adults excluding Women: Behavioral and Pharmacotherapy Interventions ([facility]) 1986 DTaP/Tdap/Td Vaccines ([facility]) (1 - Tdap) 1987 Colorectal Cancer Screening 45 -75 Yrs (or HM Modifier) 2013 Colorectal Cancer: FLEXIBLE SIGMOIDOSCOPY Screening every 5 yrs 2013 Colorectal Cancer: Fecal Imm unochemical Test (FIT) Annually [facility] 2013 Colorectal Cancer: High-sens itivity gFOBT Screening Annually [facility] 2013 Colorectal Cancer: Stool Col oguard Screening every 3 yrs 2013 Colorectal Cancer:CT Colonog pascual Screening every 5 yrs 2013 Pneumococcal Vaccination Scr eening: Patients 50+ yrs of age ([facility]) (1 of 1 - PCV) 2018 Zoster/Shingles Vaccine Seri es Screening: Adults aged 18+ yrs (or HM Modifiers)([facility]) (2 of 2) 05/07/2022 03/12/2022 COVID-19 Vaccine Screening: Initial Series and Booster Status ([facility]) ( - 2023- season) 2024 Flu Vaccination: Yearly for ages 18mos through 64 years (or Modifier)([facility]) 06/28/2025 09/17/2023 Medical Devices Not on file Insurance [facility] Care Teams Merry Go Round Operator Relationship Specialty Start Date End Date Pcp, No PCP - General Family Medicine 03/12/22
== END 2025-05-29 07:18 | disposition home or self-care (01) ==
LOC: HO.XRAY 07:17
PROVIDERS: PCP Internal Medicine; Visit Provider Urology
DX: N20.0 Calculus of kidney (principal)
CPT/HCPCS: 74018

== ENCOUNTER → 2025-05-29 07:22 | Outpatient (BNV) | payer BC, SELFPAY | PROVIDERS: PCP Internal Medicine; Visit Provider Radiology Diagnostic Radiology | DX: N20.0 Calculus of kidney (principal) | CPT/HCPCS: 74018 ==

== ENCOUNTER 2025-06-10 08:23 | Outpatient (AMB) | payer BC, SELFPAY ==
--- NOTE | 2025-06-09 22:22 | MHC.OFFVIS ---
Intake Visit Reasons: 1y/US KUB Intake Note: Patient presents today for a 1y/US/KUB Renal US 09/28/24 KUB 05/29 Urology Meds- Tamsulosin & Vitamin B6 Allergies to Antibiotic- No Known Allergies Blood Thinner- None Color Control Supervisor Required: No Accompanied by: Self / Same As Patient Allergies No Known Allergies (No Known Allergies*) Allergy (Verified 06/10/25 08:49) HPI Comments Details: 06/10/25--Miki is a 54-year-old male here for follow-up for kidney stones and BPH. He states that he will occasionally get left-sided flank pain, denies blood in the urine. He is also followed by nephrology and is on hydrochlorothiazide, and allopurinol. He denies any issues with urination. I have reviewed the follow-up 09/28/24--Multiple bilateral renal stones measuring up to 0.8 cm on the left. No hydronephrosis. History of Present Illness - The patient is a 55-year-old male presenting for a follow-up visit for nephrolithiasis and benign prostatic hyperplasia. - Nephrolithiasis: Recent KUB imaging revealed tiny calcifications in the left kidney, and a 7 mm, stone, and possible punctate calcifications in the right kidney. -the patient states he thinks he passed a couple of stones since his visit a year ago. - Previous ultrasound in September showed small stones in both kidneys. - The patient experiences occasional discomfort, particularly when moving, but reports no significant issues otherwise. - Benign Prostatic Hyperplasia: The patient is on tamsulosin, with good urine flow reported - Consider shockwave lithotripsy if stones grow or obstruct. - Schedule follow-up in one year with ultrasound to monitor stones.. Results - KUB on 05/29/25: Tiny calcifications in the left kidney, largest measuring 7 mm, and possible punctate calcifications in the right kidney. - Previous ultrasound in September: Small stones in both kidneys. 06/15/24--Miki is a 54-year-old male here for follow-up for kidney stones and BPH. He states that he will occasionally get left-sided flank pain, denies blood in the urine. He is also followed by nephrology and is on hydrochlorothiazide, and allopurinol. He denies any issues with urination. I have reviewed the follow-up renal ultrasound dated 05/29/2024, bilateral renal stones ranging from 4 mm to 8 mm no hydronephrosis. I have discussed with him that his PSAs have been normal, last PSA 02/14/2024--PSA--0.60. I have discussed to continue on vitamin B6 100 mg daily and allopurinol 100 mg daily as well as following up with Nephrology who is managing the hydrochlorothiazide. Will continue to monitor kidney stones. Follow-up in 1 year renal ultrasound and KUB prior. 09/09/23--Miki is a 52-year-old male who presents to the clinic for discussion 24-hour urine collection test results. Miki is followed for kidney stones. He has passed numerous stones in the past. He has been prescribed allopurinol 100 mg daily, history of uric acid stones. Previous 24 hour urine collection has been significant for hypercalciuria and hyperoxaluria. I have instructed on vitamin B 100 mg daily. He is on tamsulosin bid for lower urinary tract symptoms from BPH. He states that he has seen Nephrology and had the hydrochlorothiazide medication increased. I have reviewed the recent 24 hour urine collection collected on 08/30/2023. There is notable improvement with urine calcium 200 and, urine oxalate 42, urine sodium 146. Urine citrate has lowered which has been high in the past patient states he has not been eating as much citrus fruit such oranges as usual. I have also discussed lemon in the water. He has been drinking adequate fluids, urine volume was 3.11 L. Total time in discussion with patient and documentation of this record, 30 min 02/21/2023-- Miki is a 52-year-old male who presents to the clinic for discussion of KUB, PSA, and 24-hour urine collection test results The patient is currently taking hydrochlorothiazide 12.5 mg and allopurinol 100 mg The patient had history of ESWL procedure 5 years ago without any noted side effects. AUA symptom score: 4. Discussed 24 hour urine results-- collected on 02/08/2023: Total volume 3.69 L, Calcium 338 mg; Oxalate 57 mg, Sodium 236, Citrate 419 mg, Uric acid 0.775. PSA results reviewed?01/31/2023?0.56 ng/mL. KUB results reviewed?02/04/23-- Multiple left and right renal calculi noted. Renal stones of the right kidney are not well seen likely secondary to overlying stool and bowel gas. Renal US-- Suggestive of bilateral nonobstructing renal calculi. Evaluation today: Blood: negative, leukocytes: negative. Imaging: Renal U/S--01/20/23: IMPRESSION: Bilateral nonobstructing renal calculi. KUB 02/04/2023-bilateral kidney stones largest stone in the left kidney 6 mm [facility] Medical History Peripheral neuropathy Obesity (BMI 30-39.9) Impaired fasting glucose Primary osteoarthritis of both knees Carpal tunnel syndrome, right Uric acid renal calculus Dysphagia Benign prostatic hyperplasia Morbid obesity with BMI of 40.0-44.9, adult Anxiety Obstructive sleep apnea Benign essential hypertension Surgical History History of lithotripsy (~03/29/18) History of lithotripsy History of surgery History of colonoscopy History of vasectomy History of tonsillectomy Family History Father No problems noted. Mother No problems noted. Brother Diabetes mellitus Social History Housing: House Alcohol intake: current Alcohol intake frequency: holidays/special occasions only Patient Tobacco Use Status: Former Tobacco user e-Cigarette/Vaping Use: Never Used Second Hand Smoke Exposure: Yes service: No Current occupational status: employed Cognitive needs: No Hearing needs: No Vision needs: Yes Review of Systems Const All systems reviewed & are unremarkable except as noted in HPI and below Reports no additional complaints Eyes Reports no additional complaints ENT Reports no additional complaints Card Reports no additional complaints Resp Reports no additional complaints GI Reports no additional complaints Reports as per HPI Musc Reports no additional complaints Skin/Breast Reports system reviewed and no additional complaints, except as documented Neuro Reports no additional complaints Psych Reports no additional complaints Endo Reports no additional complaints Alexander/Lymph Reports no additional complaints Aller/Immun Reports no additional complaints Results Reviewed Results Reviewed: Date of Service: 09/28/24 EXAMINATION: US RETROPERITONEAL LIMITED (RENAL ONLY) CLINICAL INFORMATION: Renal stones. COMPARISON: Most recent renal ultrasound dated 05/29/2024. TECHNIQUE: Grayscale and Doppler images of the kidneys/retroperitoneum were obtained. FINDINGS: RIGHT KIDNEY: 13.8 x 6.2 x 6.1 cm (SAG x AP x TRV). The kidney is normal in size, contour, and echogenicity. Renal cortical thickness is normal. No focal parenchymal lesion. Multiple right-sided renal stones measuring up to 0.6, 0.3, and 0.3 cm. No hydronephrosis. LEFT KIDNEY: 14.1 x 6.1 x 5.9 cm (SAG x AP x TRV). The kidney is normal in size, contour, and echogenicity. Renal cortical thickness is normal. No focal parenchymal lesion. Multiple left-sided renal stones measuring up to 0.6, 0.6, and 0.8 cm. No hydronephrosis. IMPRESSION: Multiple bilateral renal stones measuring up to 0.8 cm on the left. No hydronephrosis. Date of Service: 05/29/25 XR ABDOMEN KUB CLINICAL INDICATION: N20.0 - Calculus of kidney COMPARISON: February 04, 2023 TECHNIQUE: AP view of the abdomen. FINDINGS: Multiple punctate calcifications project in the region of the left kidney in both the upper pole and lower pole. The largest is in the upper pole and measures 7 mm. Calcifications in the lower pole have somewhat of a paintbrush appearance There are a few obscured calcifications projecting in the region of the right kidney that appear more punctate in the region of the mid to lower kidney and somewhat paintbrush like in the mid to upper right kidney. Stable phleboliths present in the right hemipelvis. There is soft tissue calcification near the left shoulder tuberosity and adjacent to the left femoral neck, unchanged Overall, calcifications appear stable to slightly increased compared to the prior. XR/XR KUB IMPRESSION: Multiple kidney stones and possible nephrocalcinosis raising question of medullary sponge kidney or renal tubular ectasia IMPRESSION: Unremarkable examination. 05/29/24-- Reviewed renal ultrasound films- bilateral kidney stones ranging from 4 mm to 8 mm. Date of Service: 02/04/23 XR ABDOMEN KUB CLINICAL INDICATION: Renal calculus COMPARISON: KUB 04/26/2018, renal ultrasound 01/20/2023 TECHNIQUE: AP view of the abdomen. FINDINGS: Nonobstructive bowel gas pattern with small stool burden. Multiple stones project over the left kidney, the largest of which appears to be in the upper pole measuring up to 0.6 cm. Renal stones of the right kidney are not well seen likely secondary to overlying stool and bowel gas. Small calcification within the right pelvis, likely representing a phlebolith. No acute osseous abnormalities. IMPRESSION: 1. Multiple left-sided renal stones as above. Right renal stones are not well seen, likely secondary to bowel gas. 2. Nonobstructive bowel gas pattern. Date of Service: 01/20/23 EXAMINATION: US RETROPERITONEAL LIMITED (RENAL ONLY) CLINICAL INFORMATION: Calculus of kidney. COMPARISON: Ultrasound retroperitoneal limited (renal only) 08/28/2018. CT of the abdomen and pelvis without contrast 08/11/2018. Ultrasound retroperitoneal limited (renal only) 05/29/2018. X-ray of the abdomen KUB 04/26/2018 and 03/29/2018. TECHNIQUE: Real-time imaging of the kidneys.? FINDINGS: RIGHT KIDNEY: 13.5 x 6.3 x 7.7 cm (SAG x AP x TRV). The kidney is normal in size, contour, and echogenicity. Renal cortical thickness is normal. Multiple nonobstructing renal calculi are seen scattered throughout the kidney. The largest 3 were measured and range in size from 3.7 mm to 4.5 mm. No focal parenchymal lesions or hydronephrosis. LEFT KIDNEY: 13.2 x 6.3 x 7.7 cm (SAG x AP x TRV). The kidney is normal in size, contour, and echogenicity. Renal cortical thickness is normal. Multiple nonobstructing renal calculi are seen scattered throughout the kidney. Five of the larger stones are measured ranging in size from 4.3 mm up to 6.8 mm. No focal parenchymal lesions or hydronephrosis. Incidental note is made of an echogenic liver, consistent with hepatic steatosis which has been seen on prior imaging studies. IMPRESSION: Bilateral nonobstructing renal calculi. Overall stone burden appears to have increased since prior imaging studies. Incidentally noted hepatic steatosis. ? Assessment & Plan Assessment & Plan (1) Bilateral kidney stones: Code(s): N20.0 - Calculus of kidney Category: Medical Plan Plan - Consider left kidney stone shockwave lithotripsy, the patient wants to talk to his - Schedule follow-up in one year with ultrasound to monitor stones. - Continue tamsulosin for benign prostatic hyperplasia management. Orders: Orders US renal BI 11 Months N20.0 - Calculus of kidney Medications: Refilled tamsulosin 0.8 mg (2 x 0.4 mg) PO Q24H 180 caps 0RF 90 days Patient Instructions: The patient had an opportunity to ask questions regarding treatment plan. The patient expressed understanding and agreement with the above treatment plan. The patient is aware they should contact our office by phone for worsening of their current condition or the appearance of new symptoms. Compliance is encouraged with any medications and followup testing that is ordered. It is a privilege to be allowed the opportunity to participate in the urologic care of your patient. If you have any questions or concerns regarding treatment for the above conditions please do not hesitate to contact me. The office telephone contact is [phone]. This note is constructed in part using voice recognition software. While every effort has been made to ensure accuracy chimney repairer errors may have been included. Yours sincerely, Rasheed Del Valle MD Scribe Plan - Not visible on output: Patient was informed and verbally consented to the use of an ambient scribe for clinic note documentation during this visit. Coding Level of Care Code Est Pt Level 4 (49988) Diagnoses Bilateral kidney stones N20.0
--- OUTSIDE RECORDS SUMMARY | 2025-06-10 08:28 | XMS_ITS | Encounter Summary ---
Author Organization [facility] Address [address] [place] [address] Phone Care Team Providers Care Property Accountant Name Role Phone Rosendo Easton MD Primary Care Provider [phone] Encounter Details Date Type Department Care Team (Late st Contact Info) Description 03/03/2023 Documentation Only [facility] [place], [address] [place] [address] [place], [place] [address] [place] [address] Social History Tobacco Use Types [...] on filedocumented in this encounter Care Teams Property Accountant Relationship Specialty Start Date End Date Rosendo Easton MD [address] [place] [phone] PCP - General Internal Medicine 03/09/23 documented as of this encounter
--- OUTSIDE RECORDS SUMMARY | 2025-06-10 08:28 | XMS_ITS | Clinical Summary ---
Author Organization [facility] Address [address] [place] [address] Care Team Providers Care Ctrs Name Role Phone Pcp, No Primary Care Provider [phone] Allergies No known active allergies Medications allopurinoL [...] Adults 18 yrs or above (or HM Modifier)([facility]) 1986 Hepatitis C Virus Infection in Adolescents and Adults: Screening (or Modifier) ([facility]) 1986 [facility] Screening Reminder: [place] harper for all adults ([facility]) 1986 Tobacco Smoking Cessation: i n Adults excluding Women: Behavioral and Pharmacotherapy Interventions ([facility]) 1986 DTaP/Tdap/Td Vaccines ([facility]) (1 - Tdap) 1987 Colorectal Cancer Screening 45 -75 Yrs (or HM Modifier) 2013 Colorectal Cancer: FLEXIBLE SIGMOIDOSCOPY Screening every 5 yrs 2013 Colorectal Cancer: Fecal Imm unochemical Test (FIT) Annually [facility] 2013 Colorectal Cancer: High-sens itivity gFOBT Screening Annually [facility] 2013 Colorectal Cancer: Stool Col oguard Screening every 3 yrs 2013 Colorectal Cancer:CT Colonog pascual Screening every 5 yrs 2013 Pneumococcal Vaccination Scr eening: Patients 50+ yrs of age ([facility]) (1 of 1 - PCV) 2018 Zoster/Shingles Vaccine Seri es Screening: Adults aged 18+ yrs (or HM Modifiers)([facility]) (2 of 2) 05/07/2022 03/12/2022 COVID-19 Vaccine Screening: Initial Series and Booster Status ([facility]) ( - 2023- season) 2024 Flu Vaccination: Yearly for ages 18mos through 64 years (or Modifier)([facility]) 06/28/2025 09/17/2023 Medical Devices Not on file Insurance [facility] Care Teams Ctrs Relationship Specialty Start Date End Date Pcp, No PCP - General Family Medicine 03/12/22
== END 2025-06-10 09:04 | disposition home or self-care (01) ==
LOC: HO.HUSH 08:24
PROVIDERS: PCP Internal Medicine; Visit Provider Urology
DX: Z13.9 Encounter for screening, unspecified (principal); N20.0 Calculus of kidney
CPT/HCPCS: 99214

== ENCOUNTER → 2025-06-10 08:23 | Outpatient (BNVA) | payer BC, SELFPAY | PROVIDERS: PCP Internal Medicine; Visit Provider Urology | DX: N20.0 Calculus of kidney (principal) | CPT/HCPCS: 81003 ==